=== PATIENT | female | born 1935 | race Caucasian/White ===

== ENCOUNTER 2018-10-15 22:13 | Inpatient (IN) | payer MEDICARE, OTHER ==
[2018-10-15] MEDS ORDERED: Sodium Chloride 0.9% 1,000 ML IV ONE (22:38)
--- NOTE | 2018-10-15 22:52 | EDM.PDOC ---
ED HPI GENERAL MEDICAL PROBLEM - General Chief Complaint: Abdominal Pain Stated Complaint: ABDOMINAL PAIN [id number] Time Seen by Provider: 10/15/18 22:35 Source of Information: Reports: Patient, Family History Limitations: Reports: No Limitations - History of Present Illness INITIAL COMMENTS - FREE TEXT/NARRATIVE: ED with c/o epigastric RUQ pain, worsening past 24 hours. Has taken pain medication today, 1st one improved pain tonight did not. Daughter (RN) reports worsened COPD tonight than usual. Has not eaten or drank much past few days. GB US done at clinic, thickened wall no known obstruction "thinks sludge". Also reports since last medrol dose pack pain has gotten worse, also notes worse after budesonide neb Some confusion after starting pain medication. Off oxygen enroute from home to hospital Initial O2 sats 78% on arrival. Unsure of last BM. Abdomen Pain Score (Numeric/FACES): 5 - Related Data Allergies Allergy/AdvReac Type Severity Reaction Status Date / Time Penicillins Allergy Swelling Verified 10/15/18 22:39 IVP dye Allergy Hives Uncoded 10/15/18 22:39 Home Meds: Home Meds Albuterol [Ventolin HFA] 2 puff INH Q4H PRN 08/31/13 [History] Guar Gum [Benefiber] 1 dose PO BID 08/31/13 [History] Simvastatin [Zocor] 40 mg PO BEDTIME 08/31/13 [History] Albuterol/Ipratropium [DuoNeb 3.0-0.5 MG/3 ML] 1 unit INH Q4H PRN 10/08/18 [ History] Budesonide [Pulmicort] 1 unit NEB BID 10/08/18 [History] Carvedilol 12.5 mg PO BID 10/08/18 [History] Colchicine 0.6 mg PO DAILY 10/08/18 [History] Formoterol Fumarate [Perforomist] 1 unit INH BID 10/08/18 [History] Furosemide 20 mg PO DAILY 10/08/18 [History] Lactobac Cmb #3/Fos/Pantethine [Probiotic & Acidophilus] 1 cap PO DAILY [History] Sertraline HCl 50 mg PO DAILY 10/08/18 [History] Hydrocodone/Acetaminophen [Hydrocodon-Acetaminophen 5-325] 1 tab PO Q6HR PRN [History] Lutein/Minerals/Vit A,C & E [Ocuvite] 1 tab PO DAILY 10/16/18 [History] Triamcinolone Acetonide [Kenalog 0.1% Crm] 1 applic TOP BID 10/16/18 [History] Past Medical History Cardiovascular History: Reports: Aneurysm, Stents Respiratory History: Reports: COPD Gastrointestinal History: Reports: None Genitourinary History: Reports: None [employer] History: Reports: Neurological History: Reports: None Psychiatric History: Reports: Anxiety Endocrine/Metabolic History: Reports: None Hematologic History: Reports: None Immunologic History: Reports: None Oncologic (Cancer) History: Reports: None Dermatologic History: Reports: Eczema - Past Surgical History Cardiovascular Surgical History: Reports: Coronary Artery Stent Social & Family History - Family History Family Medical History: Noncontributory - Tobacco Use Smoking Status *Q: Heavy Tobacco Smoker Years of Tobacco use: 60 Packs/Tins Daily: 0.5 - Caffeine Use Caffeine Use: Reports: Coffee, Tea - Recreational Drug Use Recreational Drug Use: No ED ROS GENERAL - Review of Systems Review Of Systems: See Below Constitutional: Reports: Diaphoresis, Decreased Appetite. Denies: Fever, Chills , Weakness Respiratory: Reports: Shortness of Breath. Denies: Cough Cardiovascular: Reports: Dyspnea on Exertion GI/Abdominal: Reports: Abdominal Pain (epigastric RUQ), Decreased Appetite. Denies: Vomiting : Reports: No Symptoms Musculoskeletal: Reports: No Symptoms Skin: Reports: No Symptoms Neurological: Reports: Confusion (from pain medication), Weakness (general decline). Denies: Paresthesia, Pre-Existing Deficit, Trouble Speaking ED EXAM, GI/ABD - Physical Exam Exam: See Below Exam Limited By: No Limitations General Appearance: Alert, Mild Distress, Cachetic Eyes: Bilateral: EOMI Ears: Normal External Exam Nose: Normal Inspection Throat/Mouth: Normal Inspection Head: Atraumatic, Normocephalic Neck: Normal Inspection Respiratory/Chest: Decreased Breath Sounds. No: Rales, Rhonchi, Wheezing Cardiovascular: Normal Peripheral Pulses GI/Abdominal Exam: Normal Bowel Sounds, Tender (epigastric). No: Distended Extremities: Normal Inspection Neurological: Alert, Oriented (x3, decrease recall of recent events at times), Normal Cognition Psychiatric: Normal Affect, Normal Mood Skin Exam: Warm, Dry, Intact, Pallor Course - Vital Signs Last Recorded V/S: Last Vital Signs Temp 97.9 F 10/16/18 00:24 Pulse 71 10/16/18 00:24 Resp 24 H 10/16/18 00:24 BP 143/58 H 10/16/18 00:24 Pulse Ox 98 10/16/18 01:41 - Orders/Labs/Meds Orders: Active Orders 24 hr Category Date Time Status CULTURE BLOOD [BC] Stat Lab 10/15/18 22:40 Results Hemoccult [OCCULT BLOOD DIAGNOSTIC] [OP] Stat Lab 10/15/18 22:57 Ordered Sodium Chloride 0.9% [Normal Saline] 1,000 ml Med 10/15/18 22:38 Active IV .BOLUS Medication Orders Hydrocodone Bitart/Acetaminophen ([place] 325-5 Mg) 1 tab PO Q6HR PRN PRN Reason: Pain Albuterol/Ipratropium (Duoneb 3.0-0.5 Mg/3 Ml) 3 ml INH Q6HRRT ROSY Azithromycin (Zithromax) 500 mg PO DAILY ROSY Stop: 10/19/18 09:01 Budesonide (Pulmicort) 0.5 mg NEB BIDRT ROSY Colchicine (Colcrys) 0.6 mg PO DAILY ROSY Furosemide (Lasix) 20 mg PO DAILY ROSY Sodium Chloride (Normal Saline) 1,000 mls @ 100 mls/hr IV .BOLUS ONE Stop: 10/16/18 08:37 Last Admin: 10/15/18 23:00 Dose: 100 mls/hr Perforomist Neb (Own Med) 0 unit INH BIDRT ROSY Carvedilol 12.5mg (Tab Own Med) 0 each PO BID ROSY Potassium Chloride (Klor-Con 10) 40 meq PO ONETIME ONE Stop: 10/16/18 08:01 Prednisone (Prednisone) 50 mg PO WITHBREAKFAST ROSY Stop: 10/21/18 08:01 Sertraline HCl (Zoloft) 50 mg PO DAILY ROSY Simvastatin (Zocor) 40 mg PO BEDTIME ROSY Sodium Chloride (Saline Flush) 10 ml FLUSH ASDIRECTED PRN PRN Reason: Keep Vein Open Labs: Laboratory Tests 10/15/18 10/15/18 10/15/18 Range/Units 22:40 22:40 22:40 WBC 8.8 (5.0-10.0) 10^3/uL RBC 4.40 (4.2-5.4) 10^6/uL Hgb 13.3 (12.0-16.0) g/dL Hct 41.2 (37.0-47.0) % MCV 93.6 (80-100) fL MCH 30.2 (27.0-34.0) pg MCHC 32.3 L (33.0-35.0) g/dL Plt Count 191 (150-450) 10^3/uL Neut % (Auto) 86.4 H (42.2-75.2) % Lymph % (Auto) 5.7 L (20.5-50.1) % [place] % (Auto) 5.8 (2-8) % Eos % (Auto) 1.9 (1.0-3.0) % Baso % (Auto) 0.2 (0.0-1.0) % ABG pH (7.35-7.45) ABG pCO2 (35-45) mmHg ABG pO2 (70-100) mmHg ABG HCO3 (22-26) mmol/L ABG O2 Saturation (95-100) % ABG Base Excess ((-2)-(+3)) mmol/L Mohsen Test O2 Delivery Device Oxygen Flow Rate Sodium 132 L (135-145) mmol/L Potassium 3.5 L (3.6-5.0) mmol/L Chloride 91 L (101-111) mmol/L Carbon Dioxide 30.0 (21.0-31.0) mmol/L Anion Gap 14.5 BUN 15 (7-18) mg/dL Creatinine 0.6 (0.6-1.3) mg/dL Est Cr Clr Drug Dosing 50.48 mL/min Estimated GFR (MDRD) > 60 BUN/Creatinine Ratio 25.00 Glucose 154 H (74-105) mg/dL Lactic Acid 0.9 (0.5-2.2) mmol/L Calcium 8.8 (8.4-10.2) mg/dl Magnesium (1.8-2.5) mg/dL Total Bilirubin 1.2 H (0.2-1.0) mg/dL AST 23 (10-42) IU/L ALT 15 (10-60) IU/L Alkaline Phosphatase 53 (42-121) IU/L Troponin I < 0.02 (0.00-0.02) ng/ml B-Natriuretic Peptide (0-100) pg/ml Total Protein 6.5 L (6.7-8.2) g/dl Albumin 3.8 (3.2-5.5) g/dl Globulin 2.7 Albumin/Globulin Ratio 1.41 Amylase 62 (28-100) U/L Lipase 44 (22-51) U/L 10/15/18 10/15/18 Range/Units 22:40 23:30 WBC (5.0-10.0) 10^3/uL RBC (4.2-5.4) 10^6/uL Hgb (12.0-16.0) g/dL Hct (37.0-47.0) % MCV (80-100) fL MCH (27.0-34.0) pg MCHC (33.0-35.0) g/dL Plt Count (150-450) 10^3/uL Neut % (Auto) (42.2-75.2) % Lymph % (Auto) (20.5-50.1) % [place] % (Auto) (2-8) % Eos % (Auto) (1.0-3.0) % Baso % (Auto) (0.0-1.0) % ABG pH 7.33 L (7.35-7.45) ABG pCO2 70 H* (35-45) mmHg ABG pO2 85 (70-100) mmHg ABG HCO3 35.7 H (22-26) mmol/L ABG O2 Saturation 95 (95-100) % ABG Base Excess 8 H ((-2)-(+3)) mmol/L Mohsen Test Rb O2 Delivery Device Nasal cannula Oxygen Flow Rate 2 Sodium (135-145) mmol/L Potassium (3.6-5.0) mmol/L Chloride (101-111) mmol/L Carbon Dioxide (21.0-31.0) mmol/L Anion Gap BUN (7-18) mg/dL Creatinine (0.6-1.3) mg/dL Est Cr Clr Drug Dosing mL/min Estimated GFR (MDRD) BUN/Creatinine Ratio Glucose (74-105) mg/dL Lactic Acid (0.5-2.2) mmol/L Calcium (8.4-10.2) mg/dl Magnesium 1.9 (1.8-2.5) mg/dL Total Bilirubin (0.2-1.0) mg/dL AST (10-42) IU/L ALT (10-60) IU/L Alkaline Phosphatase (42-121) IU/L Troponin I (0.00-0.02) ng/ml B-Natriuretic Peptide 39 (0-100) pg/ml Total Protein (6.7-8.2) g/dl Albumin (3.2-5.5) g/dl Globulin Albumin/Globulin Ratio Amylase (28-100) U/L Lipase (22-51) U/L Meds: Medications Generic Name Dose Route Start Last Admin Trade Name Freq PRN Reason Stop Dose Admin Hydrocodone Bitart/Acetaminophen 1 tab 10/16/18 01:42 [place] 325-5 Mg PO Q6HR PRN Pain Albuterol/Ipratropium 3 ml 10/16/18 07:00 Duoneb 3.0-0.5 Mg/3 Ml INH Q6HRRT [facility] Azithromycin 500 mg 10/16/18 09:00 Zithromax PO 10/19/18 09:01 DAILY ROSY Budesonide 0.5 mg 10/16/18 07:00 Pulmicort NEB BIDRT ROSY Colchicine 0.6 mg 10/16/18 09:00 Colcrys PO DAILY ROSY Furosemide 20 mg 10/16/18 09:00 Lasix PO DAILY ROSY Sodium Chloride 1,000 mls @ 100 mls/hr 10/15/18 22:38 10/15/18 23:00 Normal Saline IV 10/16/18 08:37 100 mls/hr .BOLUS ONE Administration Perforomist Neb 0 unit 10/16/18 07:00 Own Med INH BIDRT ROSY Carvedilol 12.5mg 0 each 10/16/18 09:00 Tab Own Med PO BID ROSY Potassium Chloride 40 meq 10/16/18 08:00 Klor-Con 10 PO 10/16/18 08:01 ONETIME ONE Prednisone 50 mg 10/16/18 08:00 Prednisone PO 10/21/18 08:01 WITHBREAKFAST ROSY Sertraline HCl 50 mg 10/16/18 09:00 Zoloft PO DAILY ROSY Simvastatin 40 mg 10/16/18 21:00 Zocor PO BEDTIME ROSY Sodium Chloride 10 ml 10/16/18 01:41 Saline Flush FLUSH ASDIRECTED PRN Keep Vein Open Discontinued Medications Generic Name Dose Route Start Last Admin Trade Name Dav PRN Reason Stop Dose Admin Metoprolol Tartrate 2.5 mg 10/16/18 00:01 10/16/18 00:08 Lopressor IVPUSH 10/16/18 00:02 2.5 mg ONETIME ONE Administration - Radiology Interpretation Free Text/Narrative:: [facility] - [facility] Final Radiology Report with Addendum Call: [phone] assistance Online chat: [email or web address] Name: SURINDER DE PAZ Age: 83Years F Date: 10/15/2018 SSN: -- : [id number] Study: XR ABDOMEN 1 VIEW Requesting Physician: LASHON VILLAVICENCIO Images: 1 Addl Studies: Provided Clinical History: Contrast: Contrast Medium: Contrast Amount: Contrast Method: Page 1 of 2 Addendum created by Luc Chase DO on 10/15/2018 11:33 PM Central Time ( [place] & [place]) Followup CT scan of the abdomen and pelvis with IV contrast is recommended. THIS REPORT CONTAINS FINDINGS THAT MAY BE CRITICAL TO PATIENT CARE. The findings were verbally communicated via telephone conference with Dr. Villavicencio 10/15/2018 11 :32 PM CDT. The findings were acknowledged and understood. Initial Report created on 10/15/2018 11:23 PM Central Time ([place] & [place]) EXAM: XR Abdomen, 1 View EXAM DATE/TIME: 10/15/2018 10:51 PM CLINICAL HISTORY: 83 years old, female; Pain; Abdominal pain; Generalized; Patient HX: PT unable to lay supine so only upright film completed. TECHNIQUE: Frontal supine view of the abdomen/pelvis. COMPARISON: No relevant prior studies available. FINDINGS: Gastrointestinal tract: A large amount of stool is noted throughout the colon. The bowel gas pattern is nonobstructive and nonspecific. SURINDER DE PAZ | Final Radiology Report CONFIDENTIALITY STATEMENT This report is intended only for use by the referring physician, and only in accordance with law. If you received this in error, call [phone]. Page 2 of 2 Vasculature: Calcified density is present within the midabdomen measuring up to 6.6 cm. it is unclear on this examination if this is arising from the pancreas or aorta. This may represent an aortic aneurysm. The vasculature demonstrates diffuse moderate atherosclerotic calcification. Postoperative changes are present within the iliac arteries bilaterally with bilateral graft in place. Ectatic changes of the descending thoracic aorta present. Bones/joints: The lumbar spine demonstrates moderate degenerative changes at multiple levels. IMPRESSION: 1. Calcified density is present within the midabdomen measuring up to 6.6 cm. This may represent an aortic aneurysm. Further evaluation is recommended. 2. The bowel gas pattern is nonobstructive and nonspecific. Thank you for allowing us to participate in the care of your patient. Dictated and Authenticated by: Luc Chase DO Name: SURINDER DE PAZ Age: 83Years F Date: 10/15/2018 SSN: -- : [id number] Study: XR CHEST 1 VIEW Requesting Physician: LASHON VILLAVICENCIO Images: 1 Addl Studies: Provided Clinical History: Contrast: Contrast Medium: Contrast Amount: Contrast Method: Page 1 of 2 EXAM: XR Chest, 1 View EXAM DATE/TIME: 10/15/2018 10:39 PM CLINICAL HISTORY: 83 years old, female; Signs and symptoms; Shortness of breath; Patient HX: SOB and abdomen pain TECHNIQUE: XR of the chest, 1 view. COMPARISON: CR Chest 1V Frontal 10/08/2018 11:15 PM FINDINGS: Lungs: The lungs are hyperinflated, consistent with underlying small airways disease. Atelectatic and/or fibrotic changes noted within both lung bases. Pleural space: Apical pleural thickening noted bilaterally. Heart/Mediastinum: The heart demonstrates mild diffuse enlargement. The vasculature demonstrates diffuse moderate atherosclerotic calcification. Bones/joints: The thoracic spine demonstrates moderate degenerative changes at multiple levels. IMPRESSION: 1. The lungs are hyperinflated, consistent with underlying small airways disease. 2. Atelectatic and/or fibrotic changes noted within both lung bases. Thank you for allowing us to participate in the care of your patient. Dictated and Authenticated by: Luc Chase DO - Re-Assessments/Exams Free Text/Narrative Re-Assessment/Exam: Saturation improved with oxygen, Dyspnea with minimal exertion, orthopnea. Pain pill earlier now easing pain. after arrival. Patient states to weak to go home , Family concerned than past week unable to eat. Results of CT discussed with family. Known aneurysm. Last on US daughter thought around 5cm though remembers it as larger on CT done in [place]. Patient hx of reaction to IV contrast. TC consult Dr Low, accepting patient for observation, COPD exacerbation, weakness. Hx of RUQ pain. Family stated patient is a full code per patient desire Departure - Departure Time of Disposition: 00:25 Disposition: Refer to Observation Clinical Impression: COPD exacerbation, Constipation by delayed colonic transit, Abdominal aneurysm Abdominal pain Qualifiers: Abdominal location: epigastric Qualified Code(s): R10.13 - Epigastric pain - Discharge Information *PRESCRIPTION DRUG MONITORING PROGRAM REVIEWED*: Not Applicable *COPY OF PRESCRIPTION DRUG MONITORING REPORT IN PATIENT BAILEE: Not Applicable - My Orders Last 24 Hours: My Active Orders 10/15/18 22:38 Sodium Chloride 0.9% [Normal Saline] 1,000 ml IV .BOLUS 10/15/18 22:40 CULTURE BLOOD [BC] Stat 10/15/18 22:57 Hemoccult [OCCULT BLOOD DIAGNOSTIC] [OP] Stat - Assessment/Plan Last 24 Hours: My Active Orders 10/15/18 22:38 Sodium Chloride 0.9% [Normal Saline] 1,000 ml IV .BOLUS 10/15/18 22:40 CULTURE BLOOD [BC] Stat 10/15/18 22:57 Hemoccult [OCCULT BLOOD DIAGNOSTIC] [OP] Stat
[2018-10-15 23:14] LABS: ANION GAP 14.5; CHLORIDE,CL 91 mmol/L (101-111); SODIUM,NA 132 mmol/L (135-145)
[2018-10-15 23:34] LABS: BASE EXCESS ARTERIAL 8 mmol/L ((-2)-(+3)); BICARBONATE,ARTERIAL 35.7 mmol/L (22-26); O2 DELIVERY DEVICE NASAL CANNULA; O2 SATURATION ARTERIAL 95 % (95-100); PO2 ARTERIAL 85 mmHg (70-100)
[2018-10-15 23:38] LABS: PCO2 ARTERIAL 70 mmHg (35-45)
[2018-10-15 23:39] LABS: ALLEN TEST RB; O2 FLOW RATE 2
[2018-10-16] MEDS ORDERED: Metoprolol Tartrate 5 MG/5 ML SDV IVPUSH ONE (00:01)
--- NOTE | 2018-10-16 01:52 | PCM.HP ---
H&P History of Present Illness - General Date of Service: 10/16/18 Admit Problem/Dx: Admission Diagnosis/Problem Admission Diagnosis/Problem Back pain Source of Information: Patient History Limitations: Reports: Altered Mental Status, Other (possible dementia?) - History of Present Illness Initial Comments - Free Text/Narative: 83 yo F with PMH of smoking, COPD on night time O2, who was brought to the ED with complaints of shortness of breath and diffuse generalized abdominal pain. Patient is a poor historian and unable to give a history. Additional history obtained from patient chart and discussion with previous provider. The patient reportedly has had poor appetite and poor oral intake in the last few days. In the evening, her baseline shortness of breath worsened and she was brought to the ED. In the ED, she was found to have less than usual oxygen saturation, she was placed on supplemental oxygen with improvement. When I saw her, she was in no respiratory distress and had no complaints. She was also reported to have diffuse generalized abdominal pain. Abdominal xray done showed calcified 6.6 cm aortic aneurysm that is known, but previously [address] scan. Admitted to [facility] per request of ED provider. Abdomen Pain Score (Numeric/FACES): 5 - Related Data Allergies/Adverse Reactions: Allergies Allergy/AdvReac Type Severity Reaction Status Date / Time Penicillins Allergy Swelling Verified 10/15/18 22:39 IVP dye Allergy Hives Uncoded 10/15/18 22:39 Home Medications: Home Meds Albuterol [Ventolin HFA] 2 puff INH Q4H PRN 08/31/13 [History] Guar Gum [Benefiber] 1 dose PO BID 08/31/13 [History] Simvastatin [Zocor] 40 mg PO BEDTIME 08/31/13 [History] Albuterol/Ipratropium [DuoNeb 3.0-0.5 MG/3 ML] 1 unit INH Q4H PRN 10/08/18 [ History] Budesonide [Pulmicort] 1 unit NEB BID 10/08/18 [History] Carvedilol 12.5 mg PO BID 10/08/18 [History] Colchicine 0.6 mg PO DAILY 10/08/18 [History] Formoterol Fumarate [Perforomist] 1 unit INH BID 10/08/18 [History] Furosemide 20 mg PO DAILY 10/08/18 [History] Lactobac Cmb #3/Fos/Pantethine [Probiotic & Acidophilus] 1 cap PO DAILY [History] Sertraline HCl 50 mg PO DAILY 10/08/18 [History] Hydrocodone/Acetaminophen [Hydrocodon-Acetaminophen 5-325] 1 tab PO Q6HR PRN [History] Lutein/Minerals/Vit A,C & E [Ocuvite] 1 tab PO DAILY 10/16/18 [History] Triamcinolone Acetonide [Kenalog 0.1% Crm] 1 applic TOP BID 10/16/18 [History] Past Medical History Cardiovascular History: Reports: Aneurysm, Stents Respiratory History: Reports: COPD Gastrointestinal History: Reports: Cholelithiasis, Chronic Constipation Genitourinary History: Reports: None 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: Neurological History: Reports: None Psychiatric History: Reports: Anxiety Endocrine/Metabolic History: Reports: None Hematologic History: Reports: None Immunologic History: Reports: None Oncologic (Cancer) History: Reports: None Dermatologic History: Reports: Eczema - Past Surgical History Cardiovascular Surgical History: Reports: Coronary Artery Stent GI Surgical History: Reports: None Social & Family History - Family History Family Medical History: Noncontributory - Tobacco Use Smoking Status *Q: Heavy Tobacco Smoker Years of Tobacco use: 60 Packs/Tins Daily: 0.5 Used Tobacco, but Quit: No Second Hand Smoke Exposure: No - Caffeine Use Caffeine Use: Reports: Coffee - Recreational Drug Use Recreational Drug Use: No H&P Review of Systems - Review of Systems: Review Of Systems: Unable To Obtain (due to AMS/dementia?) Exam - Exam Exam: See Below - Vital Signs Vital Signs: Last Vital Signs Temp 36.6 C 10/16/18 00:24 Pulse 71 10/16/18 00:24 Resp 24 H 10/16/18 00:24 BP 143/58 H 10/16/18 00:24 Pulse Ox 98 10/16/18 00:24 Weight: 45.223 kg - Exam General: Alert. No: Mild Distress, Moderate Distress, Severe Distress HEENT: Conjunctiva Clear Neck: Supple, Trachea Midline Lungs: Wheezing Cardiovascular: Regular Rate, Regular Rhythm GI/Abdominal Exam: Normal Bowel Sounds - Patient Data Lab Results Last 24 hrs: Laboratory Results - last 24 hr 10/15/18 10/15/18 10/15/18 Range/Units 22:40 22:40 22:40 WBC 8.8 (5.0-10.0) 10^3/uL RBC 4.40 (4.2-5.4) 10^6/uL Hgb 13.3 (12.0-16.0) g/dL Hct 41.2 (37.0-47.0) % MCV 93.6 (80-100) fL MCH 30.2 (27.0-34.0) pg MCHC 32.3 L (33.0-35.0) g/dL Plt Count 191 (150-450) 10^3/uL Neut % (Auto) 86.4 H (42.2-75.2) % Lymph % (Auto) 5.7 L (20.5-50.1) % [place] % (Auto) 5.8 (2-8) % Eos % (Auto) 1.9 (1.0-3.0) % Baso % (Auto) 0.2 (0.0-1.0) % ABG pH (7.35-7.45) ABG pCO2 (35-45) mmHg ABG pO2 (70-100) mmHg ABG HCO3 (22-26) mmol/L ABG O2 Saturation (95-100) % ABG Base Excess ((-2)-(+3)) mmol/L Mohsen Test O2 Delivery Device Oxygen Flow Rate Sodium 132 L (135-145) mmol/L Potassium 3.5 L (3.6-5.0) mmol/L Chloride 91 L (101-111) mmol/L Carbon Dioxide 30.0 (21.0-31.0) mmol/L Anion Gap 14.5 BUN 15 (7-18) mg/dL Creatinine 0.6 (0.6-1.3) mg/dL Est Cr Clr Drug Dosing 50.48 mL/min Estimated GFR (MDRD) > 60 BUN/Creatinine Ratio 25.00 Glucose 154 H (74-105) mg/dL Lactic Acid 0.9 (0.5-2.2) mmol/L Calcium 8.8 (8.4-10.2) mg/dl Magnesium (1.8-2.5) mg/dL Total Bilirubin 1.2 H (0.2-1.0) mg/dL AST 23 (10-42) IU/L ALT 15 (10-60) IU/L Alkaline Phosphatase 53 (42-121) IU/L Troponin I < 0.02 (0.00-0.02) ng/ml B-Natriuretic Peptide (0-100) pg/ml Total Protein 6.5 L (6.7-8.2) g/dl Albumin 3.8 (3.2-5.5) g/dl Globulin 2.7 Albumin/Globulin Ratio 1.41 Amylase 62 (28-100) U/L Lipase 44 (22-51) U/L 10/15/18 10/15/18 Range/Units 22:40 23:30 WBC (5.0-10.0) 10^3/uL RBC (4.2-5.4) 10^6/uL Hgb (12.0-16.0) g/dL Hct (37.0-47.0) % MCV (80-100) fL MCH (27.0-34.0) pg MCHC (33.0-35.0) g/dL Plt Count (150-450) 10^3/uL Neut % (Auto) (42.2-75.2) % Lymph % (Auto) (20.5-50.1) % [place] % (Auto) (2-8) % Eos % (Auto) (1.0-3.0) % Baso % (Auto) (0.0-1.0) % ABG pH 7.33 L (7.35-7.45) ABG pCO2 70 H* (35-45) mmHg ABG pO2 85 (70-100) mmHg ABG HCO3 35.7 H (22-26) mmol/L ABG O2 Saturation 95 (95-100) % ABG Base Excess 8 H ((-2)-(+3)) mmol/L Mohsen Test Rb O2 Delivery Device Nasal cannula Oxygen Flow Rate 2 Sodium (135-145) mmol/L Potassium (3.6-5.0) mmol/L Chloride (101-111) mmol/L Carbon Dioxide (21.0-31.0) mmol/L Anion Gap BUN (7-18) mg/dL Creatinine (0.6-1.3) mg/dL Est Cr Clr Drug Dosing mL/min Estimated GFR (MDRD) BUN/Creatinine Ratio Glucose (74-105) mg/dL Lactic Acid (0.5-2.2) mmol/L Calcium (8.4-10.2) mg/dl Magnesium 1.9 (1.8-2.5) mg/dL Total Bilirubin (0.2-1.0) mg/dL AST (10-42) IU/L ALT (10-60) IU/L Alkaline Phosphatase (42-121) IU/L Troponin I (0.00-0.02) ng/ml B-Natriuretic Peptide 39 (0-100) pg/ml Total Protein (6.7-8.2) g/dl Albumin (3.2-5.5) g/dl Globulin Albumin/Globulin Ratio Amylase (28-100) U/L Lipase (22-51) U/L Result Diagrams: 10/15/18 22:40 10/15/18 22:40 Eddie Results Last 24 hrs: Microbiology 10/15/18 22:40 Anaerobic Blood Culture - Final Blood Problem List Initiated/Reviewed/Updated: Yes Orders Last 24hrs: Active Orders 24 hr Category Date Time Status Patient Status [ADT] Routine ADT 10/16/18 01:41 Active Ambulate [RC] ASDIRECTED Care 10/16/18 01:41 Active Height and Weight [RC] DAILY Care 10/16/18 01:41 Active Oxygen Therapy [RC] PRN Care 10/16/18 01:41 Active Peripheral IV Care [RC] . DIRECTED Care 10/16/18 01:41 Active RT Aerosol Therapy [RC] ASDIRECTED Care 10/16/18 01:44 Active Up With Assistance [RC] ASDIRECTED Care 10/16/18 01:41 Active VTE/DVT Education [RC] PER UNIT ROUTINE Care 10/16/18 01:41 Active Vital Signs [RC] Q4H Care 10/16/18 01:41 Active OT Evaluation and Treatment [CONS] Routine Cons 10/16/18 01:41 Active PT Evaluation and Treatment [CONS] Routine Cons 10/16/18 01:41 Active Regular Diet [DIET] Diet 10/16/18 Breakfast Active ABG [BLOOD GAS ARTERIAL] [BG] Timed Lab 10/16/18 06:00 Ordered CULTURE BLOOD [BC] Stat Lab 10/15/18 22:40 Results Hemoccult [OCCULT BLOOD DIAGNOSTIC] [OP] Stat Lab 10/15/18 22:57 Ordered Acetaminophen/HYDROcodone [[place] 325-5 MG] Med 10/16/18 01:42 Ordered 1 tab PO Q6HR PRN Albuterol/Ipratropium [DuoNeb 3.0-0.5 MG/3 ML] Med 10/16/18 07:00 Ordered DOSE ml INH Q6HRRT Azithromycin [Zithromax] Med 10/16/18 09:00 Ordered 500 mg PO DAILY Budesonide [Pulmicort] Med 10/16/18 09:00 Ordered DOSE mg NEB BID Carvedilol [Carvedilol] Med 10/16/18 09:00 Ordered 12.5 mg PO BID Colchicine [Colchicine] Med 10/16/18 09:00 Ordered 0.6 mg PO DAILY Formoterol Fumarate [Perforomist] Med 10/16/18 09:00 Ordered 1 unit INH BID Furosemide [Lasix] Med 10/16/18 09:00 Ordered 20 mg PO DAILY Potassium Chloride [Klor-Con 10] Med 10/16/18 06:00 Once 40 meq PO ONETIME ONE Sertraline [Zoloft] Med 10/16/18 09:00 Ordered 50 mg PO DAILY Simvastatin [Zocor] Med 10/16/18 21:00 Ordered 40 mg PO BEDTIME Sodium Chloride 0.9% [Normal Saline] 1,000 ml Med 10/15/18 22:38 Active IV .BOLUS Sodium Chloride 0.9% [Saline Flush] Med 10/16/18 01:41 Ordered 10 ml FLUSH ASDIRECTED PRN predniSONE Med 10/16/18 08:00 Ordered 50 mg PO WITHBREAKFAST Peripheral IV Insertion Adult [OM.PC] Routine Oth 10/16/18 01:41 Ordered Saline Lock Insert [OM.PC] Routine Oth 10/16/18 01:41 Ordered Medication Orders Hydrocodone Bitart/Acetaminophen ([place] 325-5 Mg) 1 tab PO Q6HR PRN PRN Reason: Pain Albuterol/Ipratropium (Duoneb 3.0-0.5 Mg/3 Ml) ml INH Q6HRRT ROSY Azithromycin (Zithromax) 500 mg PO DAILY ROSY Stop: 10/19/18 09:01 Budesonide (Pulmicort) mg NEB BID ROSY Furosemide (Lasix) 20 mg PO DAILY ROSY Sodium Chloride (Normal Saline) 1,000 mls @ 100 mls/hr IV .BOLUS ONE Stop: 03/14/19 08:37 Last Admin: 10/15/18 23:00 Dose: 100 mls/hr Non-Formulary Medication (Carvedilol [Carvedilol]) 12.5 mg PO BID [facility] Non-Formulary Medication (Colchicine [Colchicine]) 0.6 mg PO DAILY ROSY Non-Formulary Medication (Formoterol Fumarate [Perforomist]) 1 unit INH BID ROSY Prednisone (Prednisone) 50 mg PO WITHBREAKFAST ROSY Stop: 10/21/18 08:01 Sertraline HCl (Zoloft) 50 mg PO DAILY ROSY Simvastatin (Zocor) 40 mg PO BEDTIME ROSY Sodium Chloride (Saline Flush) 10 ml FLUSH ASDIRECTED PRN PRN Reason: Keep Vein Open Assessment/Plan Comment:: #COPD exacerbation -BIPAP prn -prednisone 50 mg daily for 5 days -nebs formoterol and budesonide -duonebs PRN and ATC -azithromycin 500 mg daily for 3 days -daily peak flow measurement -flutter valve -incentive spirometry #Abdominal pain #AAA -Abdominal xray done showed calcified 6.6 cm aortic aneurysm that is known, but previously [address] scan. -check CT abd/pelvis -pain management -if AAA is > 5.[address], will need referral for evaluation #DVT ppx Sc heparin #Full code
[2018-10-16] MEDS ORDERED: Potassium Chloride 10 MEQ Tab.ER PO ONE ×2 (06:00→08:00)
[2018-10-16] MEDS ORDERED: IPRATROPIUM INH SCH (07:00)
[2018-10-16] MEDS ORDERED: Budesonide 0.5 MG/2 ML Neb **OWN MED NEB SCH (07:00)
[2018-10-16] MEDS ORDERED: ALBUTEROL INH SCH (07:00)
[2018-10-16 07:26] LABS: BASE EXCESS ARTERIAL 8 mmol/L ((-2)-(+3)); BICARBONATE,ARTERIAL 35.2 mmol/L (22-26); O2 DELIVERY DEVICE NASAL CANNULA; O2 SATURATION ARTERIAL 93 % (95-100); PO2 ARTERIAL 73 mmHg (70-100)
[2018-10-16 07:29] LABS: ALLEN TEST RB; O2 FLOW RATE 2; PCO2 ARTERIAL 67 mmHg (35-45)
[2018-10-16] MEDS ORDERED: Sodium Chloride 0.9% 250 ML IV SCH (08:45)
[2018-10-16] MEDS ORDERED: Sertraline 50 MG Tab **OWN MED PO SCH (09:00)
[2018-10-16] MEDS ORDERED: CARVEDILOL 12.5 MG PO SCH (09:00)
[2018-10-16] MEDS ORDERED: Furosemide 20 MG Tab **OWN MED PO SCH (09:00)
[2018-10-16] MEDS: PERFOROMIST INH SCH ×2 (09:13→18:30)
[2018-10-16] MEDS: Sertraline 50 MG Tab **OWN MED PO SCH (10:20)
[2018-10-16] MEDS: Furosemide 20 MG Tab **OWN MED PO SCH (10:20)
[2018-10-16] MEDS: CARVEDILOL 12.5 MG PO SCH ×2 (10:20→21:23)
[2018-10-16] MEDS: predniSONE 20 MG Tab PO SCH (10:51)
[2018-10-16] MEDS: Azithromycin 250 MG Tab PO SCH (10:54)
[2018-10-16] MEDS: Acetaminophen/HYDROcodone 325-5 MG Tab PO PRN (11:47)
[2018-10-16] MEDS: Enoxaparin 30 MG/0.3 ML Syringe SUBCUT SCH (12:43)
[2018-10-16] MEDS: Colchicine 0.6 MG Tab PO SCH (12:44)
[2018-10-16] MEDS: Ondansetron 4 MG/2 ML SDV IV PRN (12:44)
--- NOTE | 2018-10-16 13:53 | CT ---
Clinical history: 83-year-old female with known abdominal aortic aneurysm and abdominal pain (measurable "mid abdominal calcification 6.6 cm diameter" on plain film). CT angioma abdomen 22 November 2016 revealed "5.1 x 7.1 x 5.0 cm diameter upper abdominal aortic aneurysm (eccentric to the right). Follow-up evaluation please. Scan technique: Volume acquisition of data from the abdomen and pelvis obtained without oral or IV contrast while patient was lying supine on the Siemens multi slice scanner [place], [place]. All data archived in the PACS system for storage, reformatting axial/sagittal/coronal planes and study. Interpretation: 1. Large upper abdominal aortic aneurysm, extending eccentrically to the right of midline, that is identical in location and configuration when compared to CTA exam 22 November 2016. 2. The aneurysm appears slightly larger (technique?) on this unenhanced exam measures 7.5 cm W x 5.5 cm in greatest AP diameter and is outlined (defined) with curvilinear calcifications as noted November 2016. No new evidence of aneurysmal extension or retroperitoneal dissection. 3. Huge 4.5 cm diameter cyst lower pole left kidney also unchanged. No solid cortical mass lesions. 4. Vascular calcifications both kidneys. No sign of pyelocaliectasis or obstructive uropathy. Normal appearing urinary bladder. 5. Gallbladder, unenhanced liver, stomach, spleen and pancreas unremarkable. 6. No abdominal or pelvic mass lesion, follow-through "dirty" peritoneal fat, mesenteric/peritoneal lymphadenopathy, signs of mechanical bowel obstruction, ascites or free intraperitoneal air. Senescent midline uterus. 7. Coronary artery calcifications and Cardiomegaly. Lung bases clear. CONCLUSION: Large, stable, abdominal aortic aneurysm (AAA).
[2018-10-16] MEDS: IPRATROPIUM INH SCH ×2 (14:32→18:31)
[2018-10-16] MEDS: ALBUTEROL INH SCH ×2 (14:32→18:31)
[2018-10-16 17:30] LABS: BASE EXCESS ARTERIAL 7 mmol/L ((-2)-(+3)); BICARBONATE,ARTERIAL 33.5 mmol/L (22-26); O2 DELIVERY DEVICE BIPAP; O2 SATURATION ARTERIAL 92 % (95-100); PCO2 ARTERIAL 59 mmHg (35-45); PO2 ARTERIAL 68 mmHg (70-100)
[2018-10-16 17:34] LABS: O2 FLOW RATE 2
[2018-10-16 17:35] LABS: ALLEN TEST RB
[2018-10-16] MEDS: Budesonide 0.5 MG/2 ML Neb **OWN MED NEB SCH (18:31)
[2018-10-16] MEDS: Polyethylene Glycol 3350 Powder 17 GM Packet PO SCH (18:38)
[2018-10-16] MEDS: Simvastatin 40 MG Tab **OWN MED PO SCH (21:23)
[2018-10-17] MEDS: ALBUTEROL INH SCH ×4 (01:29→18:50)
[2018-10-17] MEDS: IPRATROPIUM INH SCH ×4 (01:29→18:50)
[2018-10-17] MEDS: Acetaminophen/HYDROcodone 325-5 MG Tab PO PRN ×4 (02:19→21:59)
[2018-10-17] MEDS: Metoclopramide 10 MG/2 ML SDV IVPUSH PRN ×2 (03:12→08:30)
[2018-10-17] MEDS: Ondansetron 4 MG/2 ML SDV IV PRN (05:38)
[2018-10-17 07:21] LABS: BASE EXCESS ARTERIAL 8 mmol/L ((-2)-(+3)); BICARBONATE,ARTERIAL 33.1 mmol/L (22-26); O2 DELIVERY DEVICE NASAL CANNULA; O2 SATURATION ARTERIAL 90 % (95-100); PCO2 ARTERIAL 51 mmHg (35-45); PO2 ARTERIAL 61 mmHg (70-100)
[2018-10-17 07:23] LABS: ALLEN TEST PERFORMED
[2018-10-17] MEDS: PERFOROMIST INH SCH ×3 (08:02→18:45)
[2018-10-17] MEDS: Sodium Chloride 0.9% 10 ML Syringe FLUSH PRN ×2 (08:31→22:10)
[2018-10-17] MEDS: predniSONE 20 MG Tab PO SCH (09:27)
[2018-10-17] MEDS: Enoxaparin 30 MG/0.3 ML Syringe SUBCUT SCH (09:34)
[2018-10-17] MEDS: Budesonide 0.5 MG/2 ML Neb **OWN MED NEB SCH ×2 (11:17→18:55)
[2018-10-17] MEDS: Azithromycin 250 MG Tab PO SCH (13:22)
[2018-10-17] MEDS: Colchicine 0.6 MG Tab PO SCH (13:22)
[2018-10-17] MEDS: CARVEDILOL 12.5 MG PO SCH ×2 (13:23→21:57)
[2018-10-17] MEDS: Sertraline 50 MG Tab **OWN MED PO SCH (13:24)
[2018-10-17] MEDS: Furosemide 20 MG Tab **OWN MED PO SCH (13:24)
[2018-10-17] MEDS: Polyethylene Glycol 3350 Powder 17 GM Packet PO SCH (13:25)
[2018-10-17] MEDS ORDERED: Bisacodyl 5 MG Tab PO PRN (17:24)
[2018-10-17] MEDS ORDERED: Benzocaine/Docusate Sodium 20-283 MG/5 ML Enema RECTAL ONE (17:24)
[2018-10-17] MEDS: Simvastatin 40 MG Tab **OWN MED PO SCH (21:58)
[2018-10-18] MEDS: IPRATROPIUM INH SCH ×3 (01:13→13:27)
[2018-10-18] MEDS: ALBUTEROL INH SCH ×3 (01:13→13:27)
[2018-10-18] MEDS ORDERED: Bisacodyl 10 MG Supp RECTAL PRN (08:33)
[2018-10-18] MEDS: PERFOROMIST INH SCH ×2 (08:59→18:56)
[2018-10-18] MEDS: Budesonide 0.5 MG/2 ML Neb **OWN MED NEB SCH (08:59)
--- NOTE | 2018-10-18 09:17 | PN ---
DATE: 10/17/2018 SUBJECTIVE: Jessica Gonzalez is an 83-year-old lady, well known to me from previous care of herself and her . She is admitted with respiratory failure, hypercapnic and hypoxic, as well as the finding of an enlarging abdominal aortic aneurysm. Blood gases at the time of admission showed a respiratory acidosis with hypercapnia. She was temporarily placed on BiPAP to avoid intubation and is now back on nasal oxygen at 3 L/minute. Her ABG this morning showed a pH of 7.43, pCO2 of 51, pO2 of 61, O2 saturation of 90%. Review of her clinical data shows that she is taking adequate fluids. Appetite is poor. She is voiding, and per her daughters, has not had a bowel movement for 3 days. Jessica's 2 daughters and a granddaughter were present in the room and we spent time discussing Jessica's overall situation. We did address her code status, and she had been a full code. This was changed to DNR/DNI. One of her daughters is her DPOA and will bring in a new copy of the POA documents. The above-mentioned abdominal aortic aneurysm was last addressed in 2017. She was seen by Vascular Surgery at that time, and it was deemed that she was not a surgical candidate because of her COPD and other comorbidities. At this point, with her obviously advanced end-stage lung disease and her frailty, surgery certainly is not an option. The family does not wish to pursue any surgical consultation and they understand her overall situation. We spent time talking about the possibility of moving her to comfort cares. Options would include going home with hospice. If the family feels that they cannot provide enough support at home for comfort care, then we will look at [facility] placement, most likely at [facility], where her had been for several years. Family will discuss this over the weekend and come to some kind of a decision by Saturday. The transplant case manager is aware of this discussion. As far as her constipation goes, she currently receives MiraLAX 17 g daily. Senna-S one tablet at bedtime is added today. We also have written an order for her to be given a mini enema and we have written a new order for daily p.r.n. Dulcolax suppositories. Her pain is being managed at this point with p.r.n. hydrocodone 5/325 every 6 hours. She does appear comfortable. We did talk about palliative medications such as morphine sulfate and Ativan. We will not make changes at this time. We will wait forthe family to decide how they want to proceed with the decision on comfort cares. OBJECTIVE: Vital Signs: Review of her vital signs show stable blood pressure and pulse. Oxygen saturations have improved on nasal oxygen, and she has remained afebrile. General: On exam, she is lying in bed, preferentially on her right side. She did open her eyes when I called her name. She recognized me and smiled, but then closed her eyes again and really did not participate in the visit with her family. She would occasionally grab at the air and was constantly removing her sat monitor, and we have discontinued continuous oxygen saturation monitoring. HEENT: Unremarkable. Chest: Showed very diminished bilateral breath sounds with poor air movement. Heart: Showed regular rate and rhythm. Abdomen: Benign. Extremities: Examination of legs showed the calves to be soft, nontender, and legs had no edema. IMPRESSION AND PLAN: An 83-year-old lady with long history of chronic obstructive pulmonary disease and tobacco habituation. Now admitted for hypercapnic and hypoxic respiratory failure with the finding of an enlarging abdominal aortic aneurysm, previously seen and deemed to not be a surgical candidate. Continue present care. She is now [id number]. Long discussion held with family regarding the possibility of comfort care. Family will discuss this over the weekend. I am available to speak with them at any time and they do have my phone number and can call to discuss this further. Condition improved with poor prognosis. [facility] /[id number] MTDD
[2018-10-18] MEDS: Polyethylene Glycol 3350 Powder 17 GM Packet PO SCH (09:45)
[2018-10-18] MEDS: predniSONE 20 MG Tab PO SCH (09:46)
[2018-10-18] MEDS: Colchicine 0.6 MG Tab PO SCH (09:47)
[2018-10-18] MEDS: Enoxaparin 30 MG/0.3 ML Syringe SUBCUT SCH (09:47)
[2018-10-18] MEDS: Azithromycin 250 MG Tab PO SCH (09:47)
[2018-10-18] MEDS: CARVEDILOL 12.5 MG PO SCH (09:49)
[2018-10-18] MEDS: Sertraline 50 MG Tab **OWN MED PO SCH (09:50)
[2018-10-18] MEDS: Furosemide 20 MG Tab **OWN MED PO SCH (09:50)
--- NOTE | 2018-10-18 12:08 | PCM.PN ---
- General Info Date of Service: 10/18/18 Admission Dx/Problem (Free Text): Admission Diagnosis/Problem Admission Diagnosis/Problem COPD exacerbation with Hypercapnic and Hypoxic respiratory failure Functional Status: Reports: Pain Controlled, Tolerating Diet, Urinating - Review of Systems General: Reports: Weakness, Appetite (acceptable). Denies: Fever, Chills HEENT: Denies: Headaches, Sinus Congestion, Sore Throat, Visual Changes Pulmonary: Reports: Shortness of Breath, Wheezing. Denies: Cough Cardiovascular: Reports: Dyspnea on Exertion. Denies: Chest Pain, Lightheadedness Gastrointestinal: Denies: Abdominal Pain, Difficulty Swallowing, Nausea, Vomiting Genitourinary: Denies: Dysuria, Frequency, Burning, Urgency Musculoskeletal: Denies: Neck Pain, Shoulder Pain, Arm Pain, Joint Swelling Skin: Denies: Cyanosis, Jaundice, Bruising, Pruritis, Rash Neurological: Reports: Difficulty Walking, Weakness. Denies: Confusion, Numbness, Tremors Psychiatric: Denies: Confusion, Agitation - Patient Data Vitals - Most Recent: Last Vital Signs Temp 36.9 C 10/18/18 08:17 Pulse 85 10/18/18 09:00 Resp 24 H 10/18/18 08:17 BP 125/78 10/18/18 08:17 Pulse Ox 97 10/18/18 08:17 Weight - Most Recent: 45.132 kg I&O - Last 24 Hours: Intake & Output 10/17/18 10/18/18 10/18/18 22:59 06:59 14:59 Intake Total 120 400 Balance 120 400 Eddie Results Last 24 Hours: Microbiology 10/15/18 22:40 Aerobic Blood Culture - Preliminary Blood NO GROWTH AFTER 2 DAYS Anaerobic Blood Culture - Final Med Orders - Current: Current Medications Hydrocodone Bitart/Acetaminophen ([place] 325-5 Mg) 1 tab PO Q6HR PRN PRN Reason: Pain Last Admin: 10/17/18 21:59 Dose: 1 tab Azithromycin (Zithromax) 500 mg PO DAILY ROSY Stop: 10/19/18 09:01 Last Admin: 10/18/18 09:47 Dose: 500 mg Bisacodyl (Dulcolax) 10 mg RECTAL DAILY PRN PRN Reason: Constipation Colchicine (Colcrys) 0.6 mg PO DAILY ROSY Last Admin: 10/18/18 09:47 Dose: 0.6 mg Enoxaparin Sodium (Lovenox) 30 mg SUBCUT DAILY [facility] Last Admin: 10/18/18 09:47 Dose: 30 mg Metoclopramide HCl (Reglan) 5 mg IVPUSH Q6HR PRN PRN Reason: Nausea/Vomiting *Use Second* Last Admin: 10/17/18 08:30 Dose: 5 mg Perforomist Neb (Own Med) 0 unit INH BIDRT [facility] Last Admin: 10/18/18 08:59 Dose: 2 unit Ondansetron HCl (Zofran) 4 mg IV Q4HR PRN PRN Reason: Nausea/Vomiting *Use first* Last Admin: 10/17/18 05:38 Dose: 4 mg Simvastatin 40 Mg (Tab Own Med) 40 each PO BEDTIME [facility] Last Admin: 10/17/18 21:58 Dose: 40 each Furosemide 20 Mg Tab (Own Med) 20 each PO DAILY [facility] Last Admin: 10/18/18 09:50 Dose: 20 each Albuterol/Ipratropium Nebs Own Med 3 each INH Q6HRRT [facility] Last Admin: 10/18/18 08:58 Dose: 3 each Budesonide 0.5 Mg/2 (Ml Neb Own Med) 0.5 each NEB BIDRT [facility] Last Admin: 10/18/18 08:59 Dose: 0.5 each Sertraline 50 Mg Tab (Own Med) 1 each PO DAILY [facility] Last Admin: 10/18/18 09:50 Dose: 1 each Carvedilol 12.5mg (Tab Own Med) 1 each PO BID [facility] Last Admin: 10/18/18 09:49 Dose: 1 each Polyethylene Glycol (Miralax) 17 gm PO DAILY [facility] Last Admin: 10/18/18 09:45 Dose: 17 gm Prednisone (Prednisone) 50 mg PO WITHBREAKFAST [facility] Stop: 10/21/18 08:01 Last Admin: 10/18/18 09:46 Dose: 50 mg Senna/Docusate Sodium (Senna Plus) 1 tab PO BEDTIME [facility] Last Admin: 10/17/18 21:58 Dose: 1 tab Sodium Chloride (Saline Flush) 10 ml FLUSH ASDIRECTED PRN PRN Reason: Keep Vein Open Last Admin: 10/17/18 22:10 Dose: 10 ml Discontinued Medications Albuterol/Ipratropium (Duoneb 3.0-0.5 Mg/3 Ml) 3 ml INH Q6HRRT [facility] Last Admin: 10/16/18 09:12 Dose: 3 ml Bisacodyl (Dulcolax) 10 mg PO DAILY PRN PRN Reason: Constipation Budesonide (Pulmicort) 0.5 mg NEB BIDRT [facility] Last Admin: 10/16/18 09:13 Dose: 0.5 mg Docusate Sodium/Benzocaine (Enemeez Plus Mini Enema) 1 each RECTAL ONETIME ONE Stop: 10/17/18 17:25 Last Admin: 10/17/18 18:16 Dose: 1 each Furosemide (Lasix) 20 mg PO DAILY [facility] Last Admin: 10/16/18 11:05 Dose: Not Given Sodium Chloride (Normal Saline) 1,000 mls @ 100 mls/hr IV .BOLUS ONE Stop: 10/16/18 08:37 Last Admin: 10/15/18 23:00 Dose: 100 mls/hr Sodium Chloride (Normal Saline) 250 mls @ 100 mls/hr IV ASDIRECTED [facility] Last Admin: 10/16/18 09:15 Dose: 100 mls/hr Metoprolol Tartrate (Lopressor) 2.5 mg IVPUSH ONETIME ONE Stop: 10/16/18 00:02 Last Admin: 10/16/18 00:08 Dose: 2.5 mg Carvedilol 12.5mg (Tab Own Med) 0 each PO BID [facility] Last Admin: 10/16/18 11:05 Dose: Not Given Potassium Chloride (Klor-Con 10) 40 meq PO ONETIME ONE Stop: 10/16/18 08:01 Last Admin: 10/16/18 12:44 Dose: 40 meq Sertraline HCl (Zoloft) 50 mg PO DAILY [facility] Last Admin: 10/16/18 11:05 Dose: Not Given - Exam Quality Assessment: Supplemental Oxygen, DVT Prophylaxis. No: Urine Catheter General: Alert, Cooperative. No: Oriented HEENT: Pupils Equal, EOMI, Mucous Membr. Moist/[place] Neck: Supple. No: No JVD, No Thyromegaly Lungs: Clear to Auscultation, Normal Respiratory Effort Cardiovascular: Regular Rate, Regular Rhythm, Murmurs GI/Abdominal Exam: Normal Bowel Sounds, Soft, Non-Tender, No Distention (Female) Exam: Deferred Back Exam: Normal Inspection Extremities: Normal Inspection, No Pedal Edema Skin: Warm, Dry, Intact Neurological: No New Focal Deficit Psy/Mental Status: Alert, Normal Affect, Normal Mood - Problem List Review Problem List Initiated/Reviewed/Updated: Yes - Plan Plan:: This is a 83 y/O F with severe COPD and use of Tobaco and enlarging AAA Impression and Plan: 1. COPD exacerbation -BIPAP prn -prednisone 50 mg daily for 5 days -continue nebs formoterol and budesonide -duonebs q4h PRN -azithromycin 500 mg daily for 3 days - continue flutter valve -continue incentive spirometry 2. Abdominal pain - Pt has known AAA and was evaluated in the past by CT surgery and deemed not a candidate for surgery -Continue pain management -Dr. Guzman had long discussion with family and she is now DNR/DNI and over the weekend family will think either comfort care at home or transfer to a long term facility at [place] 3. DVT ppx: continue Sc heparin 4. Code status: DNR/DNI
[2018-10-18] MEDS ORDERED: Ondansetron 4 MG Tab.DIS PO PRN (18:23)
[2018-10-18] MEDS: Albuterol/Ipratropium 3.0-0.5 MG/3 ML Neb Soln INH SCH (18:56)
[2018-10-18] MEDS: Budesonide 0.5 MG/2 ML Neb Susp INH SCH (18:56)
[2018-10-18] MEDS: Carvedilol 6.25 MG Tab PO SCH (21:28)
[2018-10-18] MEDS: Simvastatin 40 MG Tab PO SCH (21:28)
[2018-10-19] MEDS: Albuterol/Ipratropium 3.0-0.5 MG/3 ML Neb Soln INH SCH ×3 (01:39→13:27)
[2018-10-19] MEDS: Budesonide 0.5 MG/2 ML Neb Susp INH SCH ×2 (07:23→17:19)
[2018-10-19] MEDS: PERFOROMIST INH SCH ×2 (07:24→21:14)
[2018-10-19] MEDS: Enoxaparin 30 MG/0.3 ML Syringe SUBCUT SCH (10:19)
[2018-10-19] MEDS: predniSONE 20 MG Tab PO SCH (10:19)
[2018-10-19] MEDS: Colchicine 0.6 MG Tab PO SCH (10:21)
[2018-10-19] MEDS: Furosemide 20 MG Tab PO SCH (10:22)
[2018-10-19] MEDS: Carvedilol 6.25 MG Tab PO SCH ×2 (10:22→21:04)
[2018-10-19] MEDS: Sertraline 50 MG Tab PO SCH (10:23)
[2018-10-19] MEDS: Polyethylene Glycol 3350 Powder 17 GM Packet PO SCH (10:23)
[2018-10-19] MEDS: Azithromycin 250 MG Tab PO SCH (10:23)
--- NOTE | 2018-10-19 11:21 | PCM.PN ---
- General Info Date of Service: 10/19/18 Admission Dx/Problem (Free Text): Admission Diagnosis/Problem Admission Diagnosis/Problem COPD exacerbation with Hypercapnic and Hypoxic respiratory failure Subjective Update: pt was seen in room today, doing well, no nausea or vomiting, no increased shortness of breath, appetite is good, no fever or chill Functional Status: Reports: Pain Controlled, Tolerating Diet, Urinating - Review of Systems General: Reports: Weakness, Appetite (good). Denies: Fever, Chills HEENT: Denies: Headaches, Sinus Congestion, Sore Throat, Visual Changes Pulmonary: Denies: Shortness of Breath, Cough, Sputum, Wheezing Cardiovascular: Denies: Chest Pain, Edema, Lightheadedness Gastrointestinal: Denies: Abdominal Pain, Diarrhea, Nausea, Vomiting Genitourinary: Denies: Dysuria, Burning, Urgency, Flank Pain Musculoskeletal: Denies: Neck Pain, Foot Pain, Joint Swelling Skin: Denies: Cyanosis, Diaphoresis, Bruising, Pruritis, Rash Neurological: Denies: Confusion, Numbness, Tremors Psychiatric: Denies: Confusion, Anxiety - Patient Data Vitals - Most Recent: Last Vital Signs Temp 36.7 C 10/19/18 08:09 Pulse 88 10/19/18 10:22 Resp 20 10/19/18 08:09 BP 145/87 H 10/19/18 10:22 Pulse Ox 90 L 10/19/18 08:09 Weight - Most Recent: 43.59 kg Eddie Results Last 24 Hours: Microbiology 10/15/18 22:40 Aerobic Blood Culture - Preliminary Blood NO GROWTH AFTER 3 DAYS Anaerobic Blood Culture - Final Med Orders - Current: Current Medications Hydrocodone Bitart/Acetaminophen ([place] 325-5 Mg) 1 tab PO Q6HR PRN PRN Reason: Pain Last Admin: 10/17/18 21:59 Dose: 1 tab Albuterol/Ipratropium (Duoneb 3.0-0.5 Mg/3 Ml) 3 ml INH Q6HRRT COUNT [facility]CLUDES [facility] Last Admin: 10/19/18 07:23 Dose: 3 ml Bisacodyl (Dulcolax) 10 mg RECTAL DAILY PRN PRN Reason: Constipation Budesonide (Pulmicort) 0.5 mg INH BIDRT COUNT [facility]CLUD[facility] Last Admin: 10/19/18 07:23 Dose: 0.5 mg Carvedilol (Coreg) 12.5 mg PO BID COUNT [facility] Last Admin: 10/19/18 10:22 Dose: 12.5 mg Colchicine (Colcrys) 0.6 mg PO DAILY [facility] Last Admin: 10/19/18 10:21 Dose: 0.6 mg Enoxaparin Sodium (Lovenox) 30 mg SUBCUT DAILY [facility] Last Admin: 10/19/18 10:19 Dose: 30 mg Furosemide (Lasix) 20 mg PO DAILY [facility] Last Admin: 10/19/18 10:22 Dose: 20 mg Metoclopramide HCl (Reglan) 5 mg IVPUSH Q6HR PRN PRN Reason: Nausea/Vomiting *Use Second* Last Admin: 10/17/18 08:30 Dose: 5 mg Perforomist Neb (Own Med) 0 unit INH BIDRT COUNT [facility] Last Admin: 10/19/18 07:24 Dose: 2 unit Ondansetron HCl (Zofran) 4 mg IV Q4HR PRN PRN Reason: Nausea/Vomiting *Use first* Last Admin: 10/17/18 05:38 Dose: 4 mg Ondansetron HCl (Zofran Odt) 4 mg PO Q4H PRN PRN Reason: Nausea Last Admin: 10/18/18 18:31 Dose: 4 mg Polyethylene Glycol (Miralax) 17 gm PO DAILY [facility] Last Admin: 10/19/18 10:23 Dose: 17 gm Prednisone (Prednisone) 50 mg PO WITHBREAKFAST COUNT [facility]CLUD[facility] Stop: 10/21/18 08:01 Last Admin: 10/19/18 10:19 Dose: 50 mg Senna/Docusate Sodium (Senna Plus) 1 tab PO BEDTIME [facility] Last Admin: 10/18/18 21:28 Dose: 1 tab Sertraline HCl (Zoloft) 50 mg PO DAILY [facility] Last Admin: 10/19/18 10:23 Dose: 50 mg Simvastatin (Zocor) 40 mg PO BEDTIME COUNT [facility] Last Admin: 10/18/18 21:28 Dose: 40 mg Sodium Chloride (Saline Flush) 10 ml FLUSH ASDIRECTED PRN PRN Reason: Keep Vein Open Last Admin: 10/17/18 22:10 Dose: 10 ml Discontinued Medications Albuterol/Ipratropium (Duoneb 3.0-0.5 Mg/3 Ml) 3 ml INH Q6HRRT COUNT [facility] Last Admin: 10/16/18 09:12 Dose: 3 ml Azithromycin (Zithromax) 500 mg PO DAILY [facility] Stop: 10/19/18 09:01 Last Admin: 10/19/18 10:23 Dose: 500 mg Bisacodyl (Dulcolax) 10 mg PO DAILY PRN PRN Reason: Constipation Budesonide (Pulmicort) 0.5 mg NEB BIDRT COUNT [facility] Last Admin: 10/16/18 09:13 Dose: 0.5 mg Docusate Sodium/Benzocaine (Enemeez Plus Mini Enema) 1 each RECTAL ONETIME ONE Stop: 10/17/18 17:25 Last Admin: 10/17/18 18:16 Dose: 1 each Furosemide (Lasix) 20 mg PO DAILY COUNT [facility] Last Admin: 10/16/18 11:05 Dose: Not Given Sodium Chloride (Normal Saline) 1,000 mls @ 100 mls/hr IV .BOLUS ONE Stop: 10/16/18 08:37 Last Admin: 10/15/18 23:00 Dose: 100 mls/hr Sodium Chloride (Normal Saline) 250 mls @ 100 mls/hr IV ASDIRECTED COUNT [facility]CLUDES [facility] Last Admin: 10/16/18 09:15 Dose: 100 mls/hr Metoprolol Tartrate (Lopressor) 2.5 mg IVPUSH ONETIME ONE Stop: 10/16/18 00:02 Last Admin: 10/16/18 00:08 Dose: 2.5 mg Carvedilol 12.5mg (Tab Own Med) 0 each PO BID COUNT [facility] Last Admin: 10/16/18 11:05 Dose: Not Given Simvastatin 40 Mg (Tab Own Med) 40 each PO BEDTIME COUNT [facility]CLUDES [facility] Last Admin: 10/17/18 21:58 Dose: 40 each Furosemide 20 Mg Tab (Own Med) 20 each PO DAILY COUNT [facility] Last Admin: 10/18/18 09:50 Dose: 20 each Albuterol/Ipratropium Nebs Own Med 3 each INH Q6HRRT COUNT [facility]CLUDES [facility] Last Admin: 10/18/18 13:27 Dose: 3 each Budesonide 0.5 Mg/2 (Ml Neb Own Med) 0.5 each NEB BIDRT COUNT [facility]CLUD[facility] Last Admin: 10/18/18 08:59 Dose: 0.5 each Sertraline 50 Mg Tab (Own Med) 1 each PO DAILY COUNT [facility]CLUDES [facility] Last Admin: 10/18/18 09:50 Dose: 1 each Carvedilol 12.5mg (Tab Own Med) 1 each PO BID COUNT [facility] Last Admin: 10/18/18 09:49 Dose: 1 each Potassium Chloride (Klor-Con 10) 40 meq PO ONETIME ONE Stop: 10/16/18 08:01 Last Admin: 10/16/18 12:44 Dose: 40 meq Sertraline HCl (Zoloft) 50 mg PO DAILY COUNT [facility]CLUD[facility] Last Admin: 10/16/18 11:05 Dose: Not Given - Exam Quality Assessment: DVT Prophylaxis. No: Supplemental Oxygen, Urine Catheter General: Alert, Oriented, Cooperative, No Acute Distress HEENT: Pupils Equal, Mucous Membr. Moist/[place] Neck: Supple, No JVD, No Thyromegaly Lungs: Clear to Auscultation, Normal Respiratory Effort Cardiovascular: Regular Rate, Regular Rhythm, Murmurs GI/Abdominal Exam: Normal Bowel Sounds, Soft, Non-Tender, No Distention (Female) Exam: Deferred Back Exam: Normal Inspection Extremities: Normal Inspection, No Pedal Edema Skin: Warm, Dry, Intact Neurological: No New Focal Deficit Psy/Mental Status: Alert, Normal Affect, Normal Mood - Problem List Review Problem List Initiated/Reviewed/Updated: Yes - My Orders Last 24 Hours: My Active Orders 10/18/18 15:50 Communication Order [RC] PRN 10/18/18 18:23 Ondansetron [Zofran ODT] 4 mg PO Q4H PRN - Plan Plan:: This is a 83 y/O F with severe COPD and use of Tobaco and enlarging AAA Impression and Plan: 1. COPD exacerbation -BIPAP prn -prednisone 50 mg daily for 5 days ( last dose will be on 10/21) -continue nebs formoterol and budesonide -duonebs q4h PRN -azithromycin for 3 days ( has completed the course) - continue flutter valve -continue incentive spirometry 2. Abdominal pain - Pt has known AAA and was evaluated in the past by CT surgery and deemed not a candidate for surgery -Continue pain management -Dr. Guzman had long discussion with family and she is now DNR/DNI and over the weekend family will think either comfort care at home or transfer to a [facility] facility at [place] and decision will be made on Saturday ( 10/20/18) 3. DVT ppx: continue Sc heparin 4. Code status: DNR/DNI
[2018-10-19] MEDS: Albuterol/Ipratropium 3.0-0.5 MG/3 ML Neb Soln NEB SCH ×2 (17:19→21:05)
[2018-10-19] MEDS: Simvastatin 40 MG Tab PO SCH (21:04)
[2018-10-20] MEDS: Albuterol/Ipratropium 3.0-0.5 MG/3 ML Neb Soln NEB SCH ×4 (07:12→21:47)
[2018-10-20] MEDS: PERFOROMIST INH SCH ×2 (07:34→18:20)
[2018-10-20] MEDS: Budesonide 0.5 MG/2 ML Neb Susp INH SCH ×2 (07:35→18:20)
[2018-10-20] MEDS: Carvedilol 6.25 MG Tab PO SCH ×2 (12:03→21:47)
[2018-10-20] MEDS: Colchicine 0.6 MG Tab PO SCH (12:03)
[2018-10-20] MEDS: predniSONE 20 MG Tab PO SCH (12:03)
[2018-10-20] MEDS: Polyethylene Glycol 3350 Powder 17 GM Packet PO SCH (12:04)
[2018-10-20] MEDS: Enoxaparin 30 MG/0.3 ML Syringe SUBCUT SCH (12:04)
[2018-10-20] MEDS: Sertraline 50 MG Tab PO SCH (12:04)
[2018-10-20] MEDS: Furosemide 20 MG Tab PO SCH (12:04)
--- NOTE | 2018-10-20 12:42 | PCM.PN ---
- General Info Date of Service: 10/20/18 Admission Dx/Problem (Free Text): Admission Diagnosis/Problem Admission Diagnosis/Problem COPD exacerbation with Hypercapnic and Hypoxic respiratory failure Subjective Update: 83 yo F with PMH of COPD, AAA, cigarette smoking, possible dementia admitted with COPD exacerbation, abdominal pain due to large AAA. SOB has improved after rx with the COPD protocol. She is back to baseline O2 by nasal cannula. Patient has however had a poor appetite. This has been going on for months. BMI is down to 17. I had a long discussion with the patient's two daughters and three grand daughters and they told me that the patient has had dementia symptoms in the preceding months including increasing forgetfulness, poor self care and more recently poor appetite. Patient currently lives alone with some assistance, but PT/OT working with her recognize that she cannot live independently anymore. During this admission, patient's code status was changed to DNR/DNI after discussions with family. - Review of Systems General: Denies: Fever Pulmonary: Denies: Shortness of Breath Cardiovascular: Reports: No Symptoms Gastrointestinal: Reports: No Symptoms Genitourinary: Reports: No Symptoms Musculoskeletal: Reports: No Symptoms - Patient Data Vitals - Most Recent: Last Vital Signs Temp 36.9 C 10/20/18 08:02 Pulse 86 10/20/18 08:02 Resp 20 10/20/18 08:02 BP 165/85 H 10/20/18 08:02 Pulse Ox 96 10/20/18 08:02 Weight - Most Recent: 43.001 kg I&O - Last 24 Hours: Intake & Output 10/19/18 10/20/18 10/20/18 22:59 06:59 14:59 Output Total 400 Balance -400 Eddie Results Last 24 Hours: Microbiology 10/15/18 22:40 Aerobic Blood Culture - Preliminary Blood NO GROWTH AFTER 4 DAYS Anaerobic Blood Culture - Final Med Orders - Current: Current Medications Hydrocodone Bitart/Acetaminophen ([place] 325-5 Mg) 1 tab PO Q6HR PRN PRN Reason: Pain Last Admin: 10/17/18 21:59 Dose: 1 tab Albuterol/Ipratropium (Duoneb 3.0-0.5 Mg/3 Ml) 3 ml NEB QIDACANDBED [facility] Last Admin: 10/20/18 11:55 Dose: Not Given Bisacodyl (Dulcolax) 10 mg RECTAL DAILY PRN PRN Reason: Constipation Budesonide (Pulmicort) 0.5 mg INH BIDRT [facility] Last Admin: 10/20/18 07:35 Dose: 0.5 mg Carvedilol (Coreg) 12.5 mg PO BID [facility] Last Admin: 10/20/18 12:03 Dose: Not Given Colchicine (Colcrys) 0.6 mg PO DAILY [facility] Last Admin: 10/20/18 12:03 Dose: Not Given Enoxaparin Sodium (Lovenox) 30 mg SUBCUT DAILY [facility] Last Admin: 10/20/18 12:04 Dose: Not Given Furosemide (Lasix) 20 mg PO DAILY [facility] Last Admin: 10/20/18 12:04 Dose: Not Given Metoclopramide HCl (Reglan) 5 mg IVPUSH Q6HR PRN PRN Reason: Nausea/Vomiting *Use Second* Last Admin: 10/17/18 08:30 Dose: 5 mg Perforomist Neb (Own Med) 0 unit INH BIDRT [facility] Last Admin: 10/20/18 07:34 Dose: 1 unit Ondansetron HCl (Zofran) 4 mg IV Q4HR PRN PRN Reason: Nausea/Vomiting *Use first* Last Admin: 10/17/18 05:38 Dose: 4 mg Ondansetron HCl (Zofran Odt) 4 mg PO Q4H PRN PRN Reason: Nausea Last Admin: 10/18/18 18:31 Dose: 4 mg Polyethylene Glycol (Miralax) 17 gm PO DAILY [facility] Last Admin: 10/20/18 12:04 Dose: Not Given Prednisone (Prednisone) 50 mg PO WITHBREAKFAST [facility] Stop: 10/21/18 08:01 Last Admin: 10/20/18 12:03 Dose: Not Given Senna/Docusate Sodium (Senna Plus) 1 tab PO BEDTIME [facility] Last Admin: 10/19/18 21:03 Dose: 1 tab Sertraline HCl (Zoloft) 50 mg PO DAILY [facility] Last Admin: 10/20/18 12:04 Dose: Not Given Simvastatin (Zocor) 40 mg PO BEDTIME [facility] Last Admin: 10/19/18 21:04 Dose: 40 mg Sodium Chloride (Saline Flush) 10 ml FLUSH ASDIRECTED PRN PRN Reason: Keep Vein Open Last Admin: 10/17/18 22:10 Dose: 10 ml Discontinued Medications Albuterol/Ipratropium (Duoneb 3.0-0.5 Mg/3 Ml) 3 ml INH Q6HRRT [facility] Last Admin: 10/16/18 09:12 Dose: 3 ml Albuterol/Ipratropium (Duoneb 3.0-0.5 Mg/3 Ml) 3 ml INH Q6HRRT [facility] Last Admin: 10/19/18 13:27 Dose: 3 ml Azithromycin (Zithromax) 500 mg PO DAILY [facility] Stop: 10/19/18 09:01 Last Admin: 10/19/18 10:23 Dose: 500 mg Bisacodyl (Dulcolax) 10 mg PO DAILY PRN PRN Reason: Constipation Budesonide (Pulmicort) 0.5 mg NEB BIDRT [facility] Last Admin: 10/16/18 09:13 Dose: 0.5 mg Docusate Sodium/Benzocaine (Enemeez Plus Mini Enema) 1 each RECTAL ONETIME ONE Stop: 10/17/18 17:25 Last Admin: 10/17/18 18:16 Dose: 1 each Furosemide (Lasix) 20 mg PO DAILY [facility] Last Admin: 10/16/18 11:05 Dose: Not Given Sodium Chloride (Normal Saline) 1,000 mls @ 100 mls/hr IV .BOLUS ONE Stop: 10/16/18 08:37 Last Admin: 10/15/18 23:00 Dose: 100 mls/hr Sodium Chloride (Normal Saline) 250 mls @ 100 mls/hr IV ASDIRECTED [facility] Last Admin: 10/16/18 09:15 Dose: 100 mls/hr Metoprolol Tartrate (Lopressor) 2.5 mg IVPUSH ONETIME ONE Stop: 10/16/18 00:02 Last Admin: 10/16/18 00:08 Dose: 2.5 mg Carvedilol 12.5mg (Tab Own Med) 0 each PO BID [facility] Last Admin: 10/16/18 11:05 Dose: Not Given Simvastatin 40 Mg (Tab Own Med) 40 each PO BEDTIME [facility] Last Admin: 10/17/18 21:58 Dose: 40 each Furosemide 20 Mg Tab (Own Med) 20 each PO DAILY [facility] Last Admin: 10/18/18 09:50 Dose: 20 each Albuterol/Ipratropium Nebs Own Med 3 each INH Q6HRRT [facility] Last Admin: 10/18/18 13:27 Dose: 3 each Budesonide 0.5 Mg/2 (Ml Neb Own Med) 0.5 each NEB BIDRT [facility] Last Admin: 10/18/18 08:59 Dose: 0.5 each Sertraline 50 Mg Tab (Own Med) 1 each PO DAILY [facility] Last Admin: 10/18/18 09:50 Dose: 1 each Carvedilol 12.5mg (Tab Own Med) 1 each PO BID [facility] Last Admin: 10/18/18 09:49 Dose: 1 each Potassium Chloride (Klor-Con 10) 40 meq PO ONETIME ONE Stop: 10/16/18 08:01 Last Admin: 10/16/18 12:44 Dose: 40 meq Sertraline HCl (Zoloft) 50 mg PO DAILY [facility] Last Admin: 10/16/18 11:05 Dose: Not Given - Exam General: Alert, Other (mildly confused) Neck: Supple Lungs: Clear to Auscultation Cardiovascular: Regular Rate, Regular Rhythm GI/Abdominal Exam: Normal Bowel Sounds, Soft - Problem List Review Problem List Initiated/Reviewed/Updated: Yes - Plan Plan:: This is a 83 y/O F with severe COPD and use of Tobaco and enlarging AAA Impression and Plan: 1. COPD exacerbation, improved -prednisone 50 mg daily for 5 days (last dose will be on 10/21) -continue nebs formoterol and budesonide -duonebs q4h PRN 2. Abdominal pain - Pt has known AAA and was evaluated in the past by CT surgery and deemed not a candidate for surgery -Continue pain management 3. DVT ppx: continue Sc heparin 4. Code status: DNR/DNI 5. Possible Dementia, poor appetite Poor appetite is likely due to dementia. Family members have noted decline in mental status in the preceding year with poor appetite, BMI of 17. PT/OT does not recommend independent living anymore. Will need placement.
[2018-10-20] MEDS: Acetaminophen/HYDROcodone 325-5 MG Tab PO PRN (16:16)
[2018-10-20] MEDS: Simvastatin 40 MG Tab PO SCH (21:48)
[2018-10-21] MEDS: Budesonide 0.5 MG/2 ML Neb Susp INH SCH (07:10)
[2018-10-21] MEDS: PERFOROMIST INH SCH (07:10)
[2018-10-21] MEDS: Albuterol/Ipratropium 3.0-0.5 MG/3 ML Neb Soln NEB SCH ×2 (07:11→11:07)
[2018-10-21] MEDS: predniSONE 20 MG Tab PO SCH (07:54)
[2018-10-21] MEDS: Colchicine 0.6 MG Tab PO SCH (08:15)
[2018-10-21] MEDS: Furosemide 20 MG Tab PO SCH (08:16)
[2018-10-21] MEDS: Sertraline 50 MG Tab PO SCH (08:16)
[2018-10-21] MEDS: Carvedilol 6.25 MG Tab PO SCH (08:16)
[2018-10-21] MEDS: Enoxaparin 30 MG/0.3 ML Syringe SUBCUT SCH (08:16)
[2018-10-21] MEDS: Polyethylene Glycol 3350 Powder 17 GM Packet PO SCH (08:16)
--- NOTE | 2018-10-21 10:44 | PCM.DCSUM1 ---
Discharge Summary - Hospital Course Free Text/Narrative:: 83 yo F with PMH of COPD, AAA, cigarette smoking, possible dementia admitted with COPD exacerbation, abdominal pain due to large AAA. SOB has improved after rx with the COPD protocol. She is back to baseline O2 by nasal cannula. Patient has however had a poor appetite. This has been going on for months. BMI is down to 17. I had a long discussion with the patient's two daughters and three grand daughters and they told me that the patient has had dementia symptoms in the preceding months including increasing forgetfulness, poor self care and more recently poor appetite. Patient currently lives alone with some assistance, but PT/OT working with her recognize that she cannot live independently anymore. During this admission, patient's code status was changed to DNR/DNI after discussions with family. [facility] Will discharge on a prednisone taper over 5 weeks. Follow up with PCP. Avoid benzodiazepines. - Discharge Data Discharge Date: 10/21/18 Discharge Disposition: DC/Tfer to SNF 03 Condition: Stable - Patient Summary/Data Consults: Consultations 10/16/18 01:41 OT Evaluation and Treatment [CONS] Routine PT Evaluation and Treatment [CONS] Routine - Patient Instructions Diet: Usual Diet as Tolerated Activity: As Tolerated - Discharge Plan *PRESCRIPTION DRUG MONITORING PROGRAM REVIEWED*: Not Applicable *COPY OF PRESCRIPTION DRUG MONITORING REPORT IN PATIENT BAILEE: Not Applicable Prescriptions/Med Rec: predniSONE [Prednisone] See Taper PO DAILY 35 Days tablet Home Medications: Home Meds Albuterol [Ventolin HFA] 2 puff INH Q4H PRN 08/31/13 [History] Guar Gum [Benefiber] 1 dose PO BID 08/31/13 [History] Simvastatin [Zocor] 40 mg PO BEDTIME 08/31/13 [History] Albuterol/Ipratropium [DuoNeb 3.0-0.5 MG/3 ML] 1 unit INH Q4H PRN 10/08/18 [ History] Budesonide [Pulmicort] 1 unit NEB BID 10/08/18 [History] Carvedilol 12.5 mg PO BID 10/08/18 [History] Colchicine 0.6 mg PO DAILY 10/08/18 [History] Formoterol Fumarate [Perforomist] 1 unit INH BID 10/08/18 [History] Furosemide 20 mg PO DAILY 10/08/18 [History] Lactobac Cmb #3/Fos/Pantethine [Probiotic & Acidophilus] 1 cap PO DAILY [History] Sertraline HCl 50 mg PO DAILY 10/08/18 [History] Hydrocodone/Acetaminophen [Hydrocodon-Acetaminophen 5-325] 1 tab PO Q6HR PRN [History] Lutein/Minerals/Vit A,C & E [Ocuvite] 1 tab PO DAILY 10/16/18 [History] Triamcinolone Acetonide [Kenalog 0.1% Crm] 1 applic TOP BID 10/16/18 [History] predniSONE [Prednisone] See Taper PO DAILY 35 Days tablet 10/21/18 [Rx] Oxygen Therapy Mode: Nasal Cannula Patient Handouts: Chronic Obstructive Pulmonary Disease Exacerbation, Easy-to- Read, Prednisone tablets Referrals: Elizabeth Villa PA [Primary Care Provider] - - Discharge Summary/Plan Comment DC Time >30 min.: Yes - General Info Date of Service: 10/21/18 Admission Dx/Problem (Free Text: Admission Diagnosis/Problem Admission Diagnosis/Problem COPD exacerbation with Hypercapnic and Hypoxic respiratory failure Subjective Update: 83 yo F with PMH of COPD, AAA, cigarette smoking, possible dementia admitted with COPD exacerbation, abdominal pain due to large AAA. This morning, the patient has no new symptoms. No CP, no SOB, abdominal pain is controlled on current pain regimen - Review of Systems General: Reports: No Symptoms. Denies: Fever HEENT: Reports: No Symptoms Pulmonary: Reports: No Symptoms. Denies: Shortness of Breath Cardiovascular: Reports: No Symptoms Gastrointestinal: Reports: No Symptoms Genitourinary: Reports: No Symptoms - Patient Data Vitals - Most Recent: Last Vital Signs Temp 36.6 C 10/21/18 08:06 Pulse 88 10/21/18 08:06 Resp 20 10/21/18 08:06 BP 150/83 H 10/21/18 08:06 Pulse Ox 95 10/21/18 08:06 Weight - Most Recent: 42.819 kg CEE Results - Last 24 hrs: Microbiology 10/15/18 22:40 Aerobic Blood Culture - Final Blood NO GROWTH AFTER 5 DAYS Anaerobic Blood Culture - Final Med Orders - Current: Current Medications Hydrocodone Bitart/Acetaminophen ([place] 325-5 Mg) 1 tab PO Q6HR PRN PRN Reason: Pain Last Admin: 10/20/18 16:16 Dose: 1 tab Albuterol/Ipratropium (Duoneb 3.0-0.5 Mg/3 Ml) 3 ml NEB QIDACANDBED [facility] Last Admin: 10/21/18 07:11 Dose: Not Given Bisacodyl (Dulcolax) 10 mg RECTAL DAILY PRN PRN Reason: Constipation Budesonide (Pulmicort) 0.5 mg INH BIDRT [facility] Last Admin: 10/21/18 07:10 Dose: 0.5 mg Carvedilol (Coreg) 12.5 mg PO BID [facility] Last Admin: 10/21/18 08:16 Dose: Not Given Colchicine (Colcrys) 0.6 mg PO DAILY [facility] Last Admin: 10/21/18 08:15 Dose: Not Given Enoxaparin Sodium (Lovenox) 30 mg SUBCUT DAILY [facility] Last Admin: 10/21/18 08:16 Dose: Not Given Furosemide (Lasix) 20 mg PO DAILY [facility] Last Admin: 10/21/18 08:16 Dose: Not Given Metoclopramide HCl (Reglan) 5 mg IVPUSH Q6HR PRN PRN Reason: Nausea/Vomiting *Use Second* Last Admin: 10/17/18 08:30 Dose: 5 mg Perforomist Neb (Own Med) 0 unit INH BIDRT [facility] Last Admin: 10/21/18 07:10 Dose: 2 unit Ondansetron HCl (Zofran) 4 mg IV Q4HR PRN PRN Reason: Nausea/Vomiting *Use first* Last Admin: 10/17/18 05:38 Dose: 4 mg Ondansetron HCl (Zofran Odt) 4 mg PO Q4H PRN PRN Reason: Nausea Last Admin: 10/18/18 18:31 Dose: 4 mg Polyethylene Glycol (Miralax) 17 gm PO DAILY [facility] Last Admin: 10/21/18 08:16 Dose: Not Given Senna/Docusate Sodium (Senna Plus) 1 tab PO BEDTIME [facility] Last Admin: 10/20/18 21:47 Dose: Not Given Sertraline HCl (Zoloft) 50 mg PO DAILY [facility] Last Admin: 10/21/18 08:16 Dose: Not Given Simvastatin (Zocor) 40 mg PO BEDTIME [facility] Last Admin: 10/20/18 21:48 Dose: Not Given Sodium Chloride (Saline Flush) 10 ml FLUSH ASDIRECTED PRN PRN Reason: Keep Vein Open Last Admin: 10/17/18 22:10 Dose: 10 ml Discontinued Medications Albuterol/Ipratropium (Duoneb 3.0-0.5 Mg/3 Ml) 3 ml INH Q6HRRT [facility] Last Admin: 10/16/18 09:12 Dose: 3 ml Albuterol/Ipratropium (Duoneb 3.0-0.5 Mg/3 Ml) 3 ml INH Q6HRRT [facility] Last Admin: 10/19/18 13:27 Dose: 3 ml Azithromycin (Zithromax) 500 mg PO DAILY [facility] Stop: 10/19/18 09:01 Last Admin: 10/19/18 10:23 Dose: 500 mg Bisacodyl (Dulcolax) 10 mg PO DAILY PRN PRN Reason: Constipation Budesonide (Pulmicort) 0.5 mg NEB BIDRT [facility] Last Admin: 10/16/18 09:13 Dose: 0.5 mg Docusate Sodium/Benzocaine (Enemeez Plus Mini Enema) 1 each RECTAL ONETIME ONE Stop: 10/17/18 17:25 Last Admin: 10/17/18 18:16 Dose: 1 each Furosemide (Lasix) 20 mg PO DAILY [facility] Last Admin: 10/16/18 11:05 Dose: Not Given Sodium Chloride (Normal Saline) 1,000 mls @ 100 mls/hr IV .BOLUS ONE Stop: 10/16/18 08:37 Last Admin: 10/15/18 23:00 Dose: 100 mls/hr Sodium Chloride (Normal Saline) 250 mls @ 100 mls/hr IV ASDIRECTED [facility] Last Admin: 10/16/18 09:15 Dose: 100 mls/hr Metoprolol Tartrate (Lopressor) 2.5 mg IVPUSH ONETIME ONE Stop: 10/16/18 00:02 Last Admin: 10/16/18 00:08 Dose: 2.5 mg Carvedilol 12.5mg (Tab Own Med) 0 each PO BID [facility] Last Admin: 10/16/18 11:05 Dose: Not Given Simvastatin 40 Mg (Tab Own Med) 40 each PO BEDTIME [facility] Last Admin: 10/17/18 21:58 Dose: 40 each Furosemide 20 Mg Tab (Own Med) 20 each PO DAILY [facility] Last Admin: 10/18/18 09:50 Dose: 20 each Albuterol/Ipratropium Nebs Own Med 3 each INH Q6HRRT [facility] Last Admin: 10/18/18 13:27 Dose: 3 each Budesonide 0.5 Mg/2 (Ml Neb Own Med) 0.5 each NEB BIDRT [facility] Last Admin: 10/18/18 08:59 Dose: 0.5 each Sertraline 50 Mg Tab (Own Med) 1 each PO DAILY [facility] Last Admin: 10/18/18 09:50 Dose: 1 each Carvedilol 12.5mg (Tab Own Med) 1 each PO BID [facility] Last Admin: 10/18/18 09:49 Dose: 1 each Potassium Chloride (Klor-Con 10) 40 meq PO ONETIME ONE Stop: 10/16/18 08:01 Last Admin: 10/16/18 12:44 Dose: 40 meq Prednisone (Prednisone) 50 mg PO WITHBREAKFAST [facility] Stop: 10/21/18 08:01 Last Admin: 10/21/18 07:54 Dose: Not Given Sertraline HCl (Zoloft) 50 mg PO DAILY [facility] Last Admin: 10/16/18 11:05 Dose: Not Given - Exam General: Reports: Alert, Oriented HEENT: Reports: Pupils Equal Neck: Reports: Supple Lungs: Reports: Clear to Auscultation Cardiovascular: Reports: Regular Rate, Regular Rhythm GI/Abdominal Exam: Normal Bowel Sounds, Soft, Non-Tender
== END 2018-10-21 11:25 | DRG 189 ==
LOC: DL.ED 22:13 → UNDOADMOB 10-16 00:12 → DL.MS 10-16 00:12 → OBSVTOIN 10-17 10:17
PROVIDERS: ADMIT Internal Medicine; ATTEND Hospitalist
DX: J96.91 Respiratory failure, unspecified with hypoxia (principal); J44.1 Chronic obstructive pulmonary disease with (acute) exacerbation; J96.92 Respiratory failure, unspecified with hypercapnia; I71.4 Abdominal aortic aneurysm, without rupture; Z66 Do not resuscitate; F41.9 Anxiety disorder, unspecified; K59.01 Slow transit constipation; F17.210 Nicotine dependence, cigarettes, uncomplicated; F03.90 Unspecified dementia, unspecified severity, without behavioral disturbance, psychotic disturbance, mood disturbance, and anxiety; Z79.899 Other long term (current) drug therapy; Z95.5 Presence of coronary angioplasty implant and graft; Z91.041 Radiographic dye allergy status; Z88.0 Allergy status to penicillin
CPT/HCPCS: 36415; 36600; 71045; 74018; 74176; 80053; 82150; 82803; 83605; 83690; 83735; 83880; 84484; 85025; 87040; 94640; 94660; 94760; 94762; 96361; 96372; 96374; 96375; 96376; 99285-25; A9270-GY; G0378; J1650; J2405; J2765; J3490; J7030; J7050; J7620-GY

== ENCOUNTER 2020-09-18 14:40 | Emergency (ER) | payer MEDICARE, OTHER ==
--- NOTE | 2020-09-18 13:58 | PCM.SN.2 ---
- Free Text/Narrative Note: 85 y/o female resident of Memory Care Unit at [place]. Fell just before lunch time. Staff had seen her in bed and about 15 minutes later, found her on the floor. Complaining of left hip pain, refusing to lay in bed, currently sitting in wheelchair. No head trauma, no LOC. Vital signs: BP 106/63 (typical BP). HR 72. RR 22. Temp 97.5. Ox Sat 98% on 2 L/min (continuous). Most recent Covid test on 09/16: no detected. Will send to ER for further evaluation. [facility] will transport. Daughters were called and informed (Tamy Puga and Lucia Caldwell). One of them will come to ER. NOTE: Fell at longterm on 09/12/20 and sustained an impacted distal left radius fracture. Plan was to see Ortho in [place] on 09/20/20 for casting. History of falls. Past Medical History: Dementia. Hypertension. Coronary artery disease. COPD ([id number] history of cigarette smoking). Peripheral vascular disease. Dyslipidemia. Meds: Reconciled in [facility]. Impression: S/P at longterm. Complaining of left hip pain. Plan: To ER for further evaluation.
[~2020-09-18 14:40] MED LIST: fentaNYL 100 MCG/2 ML SDV IVPUSH ONE
--- NOTE | 2020-09-18 14:40 | EDM.PDOC ---
"ED HPI GENERAL MEDICAL PROBLEM - General Chief Complaint: Lower Extremity Injury/Pain Stated Complaint: FELL DOWN Time Seen by Provider: 09/18/20 14:20 Source of Information: Reports: Patient, Old Records, Provider (Dr. Guzman), RN, RN Notes Reviewed History Limitations: Reports: Altered Mental Status (Dementia at baseline; Lives in Memory Care Unit) - History of Present Illness INITIAL COMMENTS - FREE TEXT/NARRATIVE: Patient presents to the ED via [facility] van with complaints of left hip pain. Per provider, Dr. Guzman, and [facility] staff the patient was assisted to bed following lunch and was noted to be on the floor complaining of left hip pain approximately 15 minutes later. The staff report no LOC and no head injury during the event. The patient is confused at baseline and is unable to state course of events. She continues to attest to pain of the left hip; denies pain to any other long bones or trunk. Per provider notes, the patient sustained an impacted distal left radius fracture following a fall at the [facility] on 09/12/20; current plan for orthopedic evaluation in [place] on 09/20/20 for casting. - Related Data Allergies Allergy/AdvReac Type Severity Reaction Status Date / Time Penicillins Allergy Swelling Verified 09/18/20 13:58 IVP dye Allergy Unknown Hives Uncoded 09/18/20 13:58 Home Meds: Home Meds Simvastatin [Zocor] 40 mg PO BEDTIME 08/31/13 [History] Albuterol/Ipratropium [DuoNeb 3.0-0.5 MG/3 ML] 1 unit INH BID PRN 10/08/18 [History] Budesonide [Pulmicort] 1 unit NEB BID 10/08/18 [History] Formoterol Fumarate [Perforomist] 1 unit INH BID 10/08/18 [History] Furosemide 20 mg PO DAILY 10/08/18 [History] Lactobacillus 3/Fos/Pantethine [Probiotic & Acidophilus] 1 cap PO DAILY 10/08/18 [History] Sertraline HCl 50 mg PO DAILY 10/08/18 [History] carvediloL [Carvedilol] 6.25 mg PO BID 10/08/18 [History] Lutein/Minerals/Vit A,C & E [Ocuvite] 1 tab PO DAILY 10/16/18 [History] Triamcinolone Acetonide [Kenalog 0.1% Crm] 1 applic TOP BID 10/16/18 [History] Cetirizine [ZyrTEC] 5 mg PO DAILY 09/18/20 [History] Cholecalciferol (Vitamin D3) [Vitamin D3] 1 cap PO DAILY 09/18/20 [History] Whey Protein/Arginine/C/E/Zinc [Arginaid Extra Liquid] 240 ml PO BID 09/18/20 [History] Past Medical History Cardiovascular History: Reports: Aneurysm, Stents Respiratory History: Reports: COPD Gastrointestinal History: Reports: Cholelithiasis, Chronic Constipation Genitourinary History: Reports: None 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: Neurological History: Reports: None Psychiatric History: Reports: Anxiety Endocrine/Metabolic History: Reports: None Hematologic History: Reports: None Immunologic History: Reports: None Oncologic (Cancer) History: Reports: None Dermatologic History: Reports: Eczema - Past Surgical History Cardiovascular Surgical History: Reports: Coronary Artery Stent GI Surgical History: Reports: None Social & Family History - Family History Family Medical History: No Pertinent Family History - Tobacco Use Tobacco Use Status *Q: Unknown Ever Used Tobacco - Caffeine Use Caffeine Use: Reports: Coffee - Recreational Drug Use Recreational Drug Use: No Review of Systems - Review of Systems Review Of Systems: Comprehensive ROS is negative, except as noted in HPI. ED EXAM, GENERAL - Physical Exam Exam: See Below Exam Limited By: Altered Mental Status (Dementia at baseline) General Appearance: Alert, No Apparent Distress, Thin Eye Exam: Bilateral Eye: EOMI, Normal Inspection, PERRL (3mm) Throat/Mouth: Normal Inspection, Normal Voice, No Airway Compromise Respiratory/Chest: No Respiratory Distress, No Accessory Muscle Use, Chest Non- Tender, Decreased Breath Sounds. No: Crackles, Rales, Rhonchi, Wheezing Cardiovascular: Normal Peripheral Pulses, Regular Rate, Rhythm, No Edema, No Gallop, No JVD, No Murmur, No Rub Peripheral Pulses: 0: Posterior Tibial (L), Posterior Tibial (R), Dorsalis Pedis (L), Dorsalis Pedis (R), 2+: Radial (L), Radial (R) Back Exam: Decreased Range of Motion Extremities: Normal Capillary Refill (To bilateral upper extremities), Slow Capillary Refill (To bilateral lower extremities), Leg Pain (To left lateral hip), Limited Range of Motion (To left hip and back; Patient remains in right- sided position for examination), Pallor (To bilateral lower extremities), Other (Splint noted to right wrist; Bilateral lower extremities cold to palpation L > R). No: Joint Swelling Neurological: Alert, Confused, Disoriented, Memory Loss Remote Events, Memory Loss Recent Events, Abnormal Gait (Patient utilized wheelchair for mobility and did not use weight bearing for transfer to bed) Psychiatric: Normal Affect, Anxious Skin Exam: Dry, Intact, No Rash, Cool (To bilateral lower extremities), Pallor (To bilateral lower extremities). No: Ecchymosis, Erythema, Jaundice, Mottled, Petechiae Course - Vital Signs Last Recorded V/S: Last Vital Signs Temp 96.4 F L 09/18/20 14:31 Pulse 71 09/18/20 16:04 Resp 16 09/18/20 16:04 BP 138/67 09/18/20 16:04 Pulse Ox 98 09/18/20 16:04 - Orders/Labs/Meds Labs: Laboratory Tests 09/18/20 Range/Units 15:34 WBC 9.7 (5.0-10.0) 10^3/uL RBC 3.36 L (4.2-5.4) 10^6/uL Hgb 10.1 L (12.0-16.0) g/dL Hct 33.0 L (37.0-47.0) % MCV 98.2 (80-100) fL MCH 30.1 (27.0-34.0) pg MCHC 30.6 L (33.0-35.0) g/dL Plt Count 183 (150-450) 10^3/uL Neut % (Auto) 89.8 H (42.2-75.2) % Lymph % (Auto) 3.4 L (20.5-50.1) % [place] % (Auto) 5.7 (2-8) % Eos % (Auto) 0.7 L (1.0-3.0) % Baso % (Auto) 0.4 (0.0-1.0) % Meds: Medications Discontinued Medications Generic Name Dose Route Start Last Admin Trade Name Freq PRN Reason Stop Dose Admin Fentanyl 25 mcg 09/18/20 14:30 09/18/20 14:38 Sublimaze IVPUSH 09/18/20 14:31 25 mcg ONETIME ONE Administration Fentanyl 25 mcg 09/18/20 17:11 09/18/20 17:18 Sublimaze IVPUSH 09/18/20 17:12 25 mcg ONETIME ONE Administration Fentanyl 25 mcg 09/18/20 17:10 09/18/20 17:18 Sublimaze IVPUSH 09/18/20 17:11 Not Given ONETIME ONE - Radiology Interpretation Free Text/Narrative:: [facility] Final Radiology Report Call: [phone] assistance Online chat: [email or web address] Context Name: SURINDER DE PAZ Age: 85Years F Date: 09/18/2020 SSN: -- : [id number] Study: CT PELVIS WO CONT Requesting Physician: Cinthia Mederos Images: 557 Addl Studies: Provided Clinical History: Fall from bed; Left hip pain and deformity Contrast: Without Contrast Medium: Contrast Amount: Contrast Method: Page 1 of 2 PROCEDURE INFORMATION: Exam: CT Pelvis Without Contrast; Skeletal Exam date and time: 09/18/2020 2:42 PM Age: 85 years old Clinical indication: Other: Fall from bed; Left hip pain and deformity TECHNIQUE: Imaging protocol: Computed tomography images of the pelvis without contrast. Exam focused on the skeletal structures. Total images: 557 Radiation optimization: All CT scans at this facility use at least one of these dose optimization techniques: automated exposure control; mA and/or kV adjustment per patient size (includes targeted exams where dose is matched to clinical indication); or iterative reconstruction. COMPARISON: CT Abdomen Pelvis wo Cont 10/16/2018 12:16 PM FINDINGS: Kidneys and ureters: Redemonstration of 3.8 cm left renal cyst with internal calcified septation, similar to prior study. Vasculature: 3.3 cm distal abdominal aortic aneurysm. Partially imaged additional calcification to the right of this may indicate portions of a larger more proximal aortic aneurysm. Bones/joints: There is an acute comminuted left intertrochanteric femoral fracture. Some overriding of fragments. A medial fracture fragment is displaced by at least 1.3 cm. Multiple fracture fragments. Varus angulation distal fracture fragment. Some adjacent edema along the left hip musculature. Soft tissues: Unremarkable. IMPRESSION: 1. Acute comminuted displaced left intertrochanteric fracture. 2. See above for other details. SURINDER DE PAZ | Final Radiology Report CONFIDENTIALITY STATEMENT This report is intended only for use by the referring physician, and only in accordance with law. If you received this in error, call [phone]. Page 2 of 2 Thank you for allowing us to participate in the care of your patient. Dictated and Authenticated by: Cricket Conn MD 09/18/2020 3:16 PM Central Time ([place] & [place]) - Re-Assessments/Exams Free Text/Narrative Re-Assessment/Exam: 09/18/20 CT of pelvis revealed acute comminuted, displaced intertrochanteric fracture to the left extremity. Notified patient and daughter of results. Case discussed with Dr. Lazcano, orthopedic surgeon at [facility] in [place]. Discussed advanced dementia and advanced COPD with FEV1 of 24%. Dr. Lazcano stated he would kindly accept patient for transfer through the ED, should the family wish, but potential discussion regarding wish for surgery should happen between family members. Hgb 10.1, slightly reduced from last visit with Hgb 11.3 Discussed advanced COPD with patient and family with FEV1 of 24%. Family to discuss wish for transport for further orthopedic evaluation vs wish for pain management for acute fracture here. Family and patient opt for transfer to [facility] for orthopedic consult. Case discussed with Dr. Chatman of [facility] ED. Dr. Lazcano updated regarding plan of care. Departure - Departure Time of Disposition: 17:15 Disposition: DC/Tfer to Acute Hospital 02 Condition: Good Clinical Impression: Intertrochanteric fracture, hip COPD (chronic obstructive pulmonary disease) Qualifiers: COPD type: unspecified COPD Qualified Code(s): J44.9 - Chronic obstructive pulmonary disease, unspecified - Discharge Information Referrals: Meli Guzman MD [Primary Care Provider] - Forms: ED Department Discharge, Interfacility Transfer HOOD Sepsis Event Note (ED) - Evaluation Sepsis Screening Result: No Definite Risk"
--- NOTE | 2020-09-18 15:16 | CT ---
PROCEDURE INFORMATION: Exam: CT Pelvis Without Contrast; Skeletal Exam date and time: 09/18/2020 2:42 PM Age: 85 years old Clinical indication: Other: Fall from bed; Left hip pain and deformity TECHNIQUE: Imaging protocol: Computed tomography images of the pelvis without contrast. Exam focused on the skeletal structures. Total images: 557 Radiation optimization: All CT scans at this facility use at least one of these dose optimization techniques: automated exposure control; mA and/or kV adjustment per patient size (includes targeted exams where dose is matched to clinical indication); or iterative reconstruction. COMPARISON: CT Abdomen Pelvis wo Cont 10/16/2018 12:16 PM FINDINGS: Kidneys and ureters: Redemonstration of 3.8 cm left renal cyst with internal calcified septation, similar to prior study. Vasculature: 3.3 cm distal abdominal aortic aneurysm. Partially imaged additional calcification to the right of this may indicate portions of a larger more proximal aortic aneurysm. Bones/joints: There is an acute comminuted left intertrochanteric femoral fracture. Some overriding of fragments. A medial fracture fragment is displaced by at least 1.3 cm. Multiple fracture fragments. Varus angulation distal fracture fragment. Some adjacent edema along the left hip musculature. Soft tissues: Unremarkable. IMPRESSION: 1. Acute comminuted displaced left intertrochanteric fracture. 2. See above for other details.
[2020-09-18] MEDS ORDERED: fentaNYL 100 MCG/2 ML SDV IVPUSH ONE ×2 (17:10→17:11)
== END 2020-09-18 17:44 ==
LOC: DL.ED 14:40
DX: S72.142A Displaced intertrochanteric fracture of left femur, initial encounter for closed fracture (principal); F03.90 Unspecified dementia, unspecified severity, without behavioral disturbance, psychotic disturbance, mood disturbance, and anxiety; J44.9 Chronic obstructive pulmonary disease, unspecified; Z88.0 Allergy status to penicillin; Z91.041 Radiographic dye allergy status; Z79.899 Other long term (current) drug therapy; W19.XXXA Unspecified fall, initial encounter
CPT/HCPCS: 36415; 72192; 85025; 96374; 99285; J3010; 96376